=== PATIENT | female | born 1955 | race Caucasian/White ===

== ENCOUNTER 2017-10-04 12:12 | Emergency (ER) | payer OTHER | END 2017-10-04 18:16 | disposition home or self-care (01) | LOC: FTE 12:12 | DX: M75.122 Complete rotator cuff tear or rupture of left shoulder, not specified as traumatic (principal); M53.3 Sacrococcygeal disorders, not elsewhere classified; J44.9 Chronic obstructive pulmonary disease, unspecified; Z87.891 Personal history of nicotine dependence | CPT/HCPCS: 72220; 73030; 99284-25 ==

== ENCOUNTER 2018-02-09 11:18 | Emergency (ER) | payer OTHER ==
[2018-02-09 12:55] LABS: ADD MAN DIFF? NO
[2018-02-09 13:00] LABS: BASOPHILS % 0.3 % (0.0-2.0); EOSINOPHILS % 0.1 % (0.0-7.0); HEMATOCRIT 40.7 % (37.0-47.0); HEMOGLOBIN 12.8 g/dl (12.0-16.0); LYMPHOCYTES # 1.5 10^3/ul (0.8-2.9); LYMPHOCYTES % 14.2 % (15.0-51.0); MEAN CORPUSCULAR HEMOGLOBIN 25.7 pg (29.0-33.0); MEAN CORPUSCULAR HGB CONC 31.4 g/dl (32.0-37.0); MEAN CORPUSCULAR VOLUME 81.6 fl (82.0-101.0); MEAN PLATELET VOLUME 10.7 fl (7.4-10.4); MONOCYTE # 0.4 10^3/ul (0.3-0.9); MONOCYTES % 3.2 % (0.0-11.0); NEUTROPHIL # 8.8 10^3/ul (1.6-7.5); NEUTROPHILS % 81.6 % (39.0-77.0); PLATELET COUNT 294 10^3/UL (140-415); RED BLOOD COUNT 4.99 10^6/ul (4.20-5.40); RED CELL DISTRIBUTION WIDTH 17.1 % (11.5-14.5)
[2018-02-09 13:00] LABS: WHITE BLOOD COUNT 10.8 10^3/ul (4.8-10.8)
[2018-02-09 13:18] LABS: ALANINE AMINOTRANSFERASE 15 IU/L (13-69); ALBUMIN 4.4 g/dl (3.3-4.9); ALBUMIN/GLOBULIN RATIO 1.29; ALKALINE PHOSPHATASE 93 IU/L (42-121); ANION GAP 17 (8-16); ASPARTATE AMINO TRANSFERASE 17 IU/L (15-46); BILIRUBIN,INDIRECT 0.4 mg/dl (0-1.1); BILIRUBIN,TOTAL 0.4 mg/dl (0.2-1.3); BLOOD UREA NITROGEN 15 mg/dl (7-20); CALCIUM 9.6 mg/dl (8.4-10.2); CARBON DIOXIDE 23 mmol/L (21-31); CHLORIDE 107 mmol/L (97-110); CREATININE 0.63 mg/dl (0.44-1.00); GLUCOSE 111 mg/dl (70-220); LIPASE 47 U/L (23-300); SODIUM 143 mmol/L (135-144); TOTAL PROTEIN 7.8 g/dl (6.1-8.1)
[2018-02-09] MEDS: ONDANSETRON 4 MG INJ IV (13:24)
[2018-02-09] MEDS: SOD CHLORIDE 0.9% 1,000 ML IV (13:25)
[2018-02-09 13:57] LABS: ADD UMIC NO; UR ASCORBIC ACID NEGATIVE (NEGATIVE); UR BILIRUBIN (Dip) NEGATIVE (NEGATIVE); UR BLOOD (Dip) NEGATIVE (NEGATIVE); UR CLARITY CLEAR (CLEAR); UR COLOR YELLOW (YELLOW); UR GLUCOSE (Dip) NEGATIVE (NEGATIVE); UR KETONES (Dip) TRACE mg/dL (NEGATIVE); UR LEUKOCYTE ESTERASE (Dip) NEGATIVE Leu/ul (NEGATIVE); UR NITRITE (Dip) NEGATIVE (NEGATIVE); UR SPECIFIC GRAVITY (Dip) 1.012 (1.003-1.030); UR TOTAL PROTEIN (Dip) NEGATIVE (NEGATIVE); UR UROBILINOGEN (Dip) NEGATIVE (NEGATIVE)
[2018-02-09] MEDS: FAMOTIDINE 20 MG INJ IV (14:12)
[2018-02-09] MEDS: METOCLOPRAMIDE 10 MG INJ IV (14:12)
[2018-02-09] MEDS: LIDOCAINE/MYLANTA 40 ML BTL PO (14:12)
[2018-02-09] MEDS: DIPHENHYDRAMINE 50 MG INJ IV (14:12)
[2018-02-09] MEDS: morphine 4 MG/ML VIAL IV (14:13)
== END 2018-02-09 16:48 | disposition home or self-care (01) ==
LOC: E/R 11:18
DX: R11.2 Nausea with vomiting, unspecified (principal); R10.13 Epigastric pain
CPT/HCPCS: 36415; 80053; 81003; 83690; 85025; 96374; 96375; 99284-25

== ENCOUNTER 2018-04-24 06:27 | Inpatient (IN) | payer OTHER ==
[2018-04-24] MEDS ORDERED: BUPIVACAINE 0.5%/EPI (SDV) 30 ML INJ (06:45)
[2018-04-24] MEDS ORDERED: HYDROmorphONE 2 MG/ML SYG (06:46)
[2018-04-24] MEDS ORDERED: MIDAZOLAM 1 MG/ML 2 ML INJ (06:46)
[2018-04-24] MEDS ORDERED: ROPIVACAINE 0.5 % 30 ML VIAL (06:46)
[2018-04-24] MEDS ORDERED: HYDROCORTISONE 100 MG INJ (06:46)
[2018-04-24] MEDS ORDERED: THROMBIN 5000 UNIT VIAL (06:46)
[2018-04-24] MEDS ORDERED: CA CHLORIDE 10% 10 ML SYRINGE (06:46)
[2018-04-24] MEDS ORDERED: PROPOFOL 20 ML (06:46)
[2018-04-24] MEDS ORDERED: TOBRAMYCIN 1.2 GM POWDER (06:46)
[2018-04-24] MEDS ORDERED: CEFAZOLIN 1 GM INJ (06:46)
[2018-04-24] MEDS: DEXAMETHASONE 1 MG TAB PO (06:50)
[2018-04-24] MEDS: traMADol 50 MG TAB PO (06:50)
[2018-04-24] MEDS ORDERED: hydrALAzine 20 MG INJ (07:25)
[2018-04-24] MEDS ORDERED: DEXAMETHASONE 4 MG/ML 1 ML INJ (07:28)
[2018-04-24] MEDS ORDERED: ONDANSETRON 4 MG INJ (07:28)
[2018-04-24] MEDS ORDERED: ACETAMINOPHEN 1000MG/100ML IV 100 ML (07:28)
[2018-04-24] MEDS ORDERED: METOCLOPRAMIDE 10 MG INJ (07:28)
[2018-04-24] MEDS ORDERED: LABETALOL HCL 20MG INJ (07:33)
[2018-04-24] MEDS ORDERED: VANCOMYCIN 1 GM INJ (08:19)
[2018-04-24] MEDS ORDERED: FENTAnyl 50 MCG/ML VIAL IV ×3 (08:30)
[2018-04-24] MEDS: POLYMYXIN/BACITRACIN 1L IRRIG (08:30)
[2018-04-24] MEDS ORDERED: hydrALAzine 20 MG INJ IV (08:30)
[2018-04-24] MEDS ORDERED: ALBUTEROL 0.083% (NEB) 2.5 MG/3 ML AMP HHN (08:30)
[2018-04-24] MEDS ORDERED: MEPERIDINE 25 MG INJ IV (08:30)
[2018-04-24] MEDS ORDERED: LABETALOL HCL 20MG INJ IV (08:30)
[2018-04-24] MEDS: CEFAZOLIN 2 GM/50 ML (PMX) 50 ML IVPB (08:30)
[2018-04-24] MEDS ORDERED: EPHEDrine SULFATE 50 MG/5 ML SYG IV (08:30)
[2018-04-24] MEDS ORDERED: METOCLOPRAMIDE 10 MG INJ IV (08:30)
[2018-04-24] MEDS ORDERED: HYDROmorphONE 1 MG/5 ML IV SYRINGE IV (08:30)
[2018-04-24] MEDS ORDERED: OXYCODONE/ACETAMINOPHEN (5/325) TAB PO ×3 (08:30→09:00)
[2018-04-24] MEDS: BUPIVACAINE 0.5% (SDV) 30 ML, morphine SULFATE (PF) 8 MG, EPINEPHrine 0.3 MG, KETOROLAC... IRR (08:30)
[2018-04-24] MEDS: TRANEXAMIC ACID 1,000 MG in DEXTROSE 5% 100 ML IVPB (08:30)
[2018-04-24] MEDS ORDERED: DIPHENHYDRAMINE 50 MG INJ IV ×2 (08:30→09:00)
[2018-04-24] MEDS ORDERED: IPRATROPIUM (NEB) 0.5 MG/2.5 ML AMP HHN (08:30)
[2018-04-24] MEDS ORDERED: SUGAMMADEX SODIUM 200 MG/2 ML VIAL IV (08:32)
[2018-04-24] MEDS: TRANEXAMIC ACID 1,000 MG in DEXTROSE 5% 100 ML IV (09:00)
[2018-04-24] MEDS ORDERED: morphine 2 MG INJ IV ×2 (09:00)
[2018-04-24] MEDS ORDERED: ONDANSETRON 4 MG INJ IV (09:00)
[2018-04-24] MEDS ORDERED: ZOLPIDEM 5 MG TAB PO (09:00)
[2018-04-24] MEDS: HYDROmorphONE 1 MG/5 ML IV SYRINGE IV ×4 (09:16→14:05)
[2018-04-24] MEDS: ONDANSETRON 4 MG INJ IV ×3 (09:19→10:12)
[2018-04-24] MEDS ORDERED: LORAZEPAM 2 MG INJ IV (09:30)
[2018-04-24] MEDS: CEFAZOLIN 1 GM/50 ML (PMX) 50 ML IVPB ×2 (11:57→19:59)
[2018-04-24] MEDS: DEXAMETHASONE 2 MG TAB PO ×2 (12:00→17:10)
[2018-04-24] MEDS: ALBUTEROL HFA 8 GM INHALER INH ×2 (17:00→21:00)
[2018-04-24] MEDS: OXYCODONE/ACETAMINOPHEN (5/325) TAB PO ×2 (17:10→21:40)
[2018-04-24] MEDS: GABAPENTIN 300 MG CAP PO (21:40)
[2018-04-24] MEDS: SENNA/DOCUSATE NA (8.6MG/50MG) TAB PO (21:40)
[2018-04-25] MEDS: DEXAMETHASONE 2 MG TAB PO ×2 (00:24→06:30)
[2018-04-25] MEDS: TOLTERODINE (SR) 2 MG CAP PO ×3 (00:24→21:00)
[2018-04-25] MEDS: ALBUTEROL HFA 8 GM INHALER INH ×6 (01:23→21:01)
[2018-04-25] MEDS: OXYCODONE/ACETAMINOPHEN (5/325) TAB PO ×5 (03:12→22:20)
[2018-04-25] MEDS: CEFAZOLIN 1 GM/50 ML (PMX) 50 ML IVPB (04:00)
[2018-04-25] MEDS: PANTOPRAZOLE (EC) 40 MG TAB PO (06:30)
[2018-04-25] MEDS ORDERED: TOLTERODINE (SR) 2 MG CAP PO (09:00)
[2018-04-25] MEDS ORDERED: TOLTERODINE (SR) 4 MG CAP PO (09:00)
[2018-04-25] MEDS: ASPIRIN 81 MG TAB PO (09:06)
[2018-04-25] MEDS: SENNA/DOCUSATE NA (8.6MG/50MG) TAB PO ×2 (09:06→21:00)
[2018-04-25] MEDS: predniSONE 10 MG TAB PO (09:06)
[2018-04-25] MEDS: KETOROLAC 15 MG INJ IV ×2 (09:34→23:24)
[2018-04-25] MEDS: morphine LIQ (10 MG/5 ML) CUP PO ×3 (10:00→21:00)
[2018-04-25] MEDS: GABAPENTIN 300 MG CAP PO (21:00)
[2018-04-26] MEDS: morphine LIQ (10 MG/5 ML) CUP PO ×6 (00:55→21:14)
[2018-04-26] MEDS: ALBUTEROL HFA 8 GM INHALER INH ×6 (00:58→21:14)
[2018-04-26] MEDS: OXYCODONE/ACETAMINOPHEN (5/325) TAB PO ×6 (02:56→23:07)
[2018-04-26] MEDS: PANTOPRAZOLE (EC) 40 MG TAB PO (06:40)
[2018-04-26] MEDS: TOLTERODINE (SR) 2 MG CAP PO ×2 (08:57→21:14)
[2018-04-26] MEDS: SENNA/DOCUSATE NA (8.6MG/50MG) TAB PO ×2 (08:57→21:14)
[2018-04-26] MEDS: ASPIRIN 81 MG TAB PO (08:58)
[2018-04-26] MEDS: MAGNESIUM HYDROXIDE 30ML CUP PO (08:58)
[2018-04-26] MEDS: predniSONE 10 MG TAB PO (10:42)
[2018-04-26] MEDS: GABAPENTIN 300 MG CAP PO (21:14)
[2018-04-27] MEDS: morphine LIQ (10 MG/5 ML) CUP PO ×6 (01:13→21:52)
[2018-04-27] MEDS: ALBUTEROL HFA 8 GM INHALER INH ×6 (01:15→20:03)
[2018-04-27] MEDS: OXYCODONE/ACETAMINOPHEN (5/325) TAB PO ×5 (03:11→20:04)
[2018-04-27] MEDS: PANTOPRAZOLE (EC) 40 MG TAB PO (07:31)
[2018-04-27] MEDS: TOLTERODINE (SR) 2 MG CAP PO ×2 (09:07→20:03)
[2018-04-27] MEDS: ACETAMINOPHEN 500 MG TAB PO (09:07)
[2018-04-27] MEDS: SENNA/DOCUSATE NA (8.6MG/50MG) TAB PO ×2 (09:07→20:03)
[2018-04-27] MEDS: ASPIRIN 81 MG TAB PO (09:07)
[2018-04-27] MEDS: predniSONE 10 MG TAB PO (09:07)
[2018-04-27] MEDS: MAGNESIUM HYDROXIDE 30ML CUP PO (17:42)
[2018-04-27] MEDS: GABAPENTIN 300 MG CAP PO (20:03)
[2018-04-28] MEDS: OXYCODONE/ACETAMINOPHEN (5/325) TAB PO ×6 (00:09→20:17)
[2018-04-28] MEDS: morphine LIQ (10 MG/5 ML) CUP PO ×6 (01:55→22:16)
[2018-04-28] MEDS: ALBUTEROL HFA 8 GM INHALER INH ×6 (01:55→20:25)
[2018-04-28] MEDS: SENNA/DOCUSATE NA (8.6MG/50MG) TAB PO ×2 (08:23→20:25)
[2018-04-28] MEDS: ASPIRIN 81 MG TAB PO (08:24)
[2018-04-28] MEDS: TOLTERODINE (SR) 2 MG CAP PO ×2 (08:24→20:25)
[2018-04-28] MEDS: predniSONE 10 MG TAB PO (08:24)
[2018-04-28] MEDS: PANTOPRAZOLE (EC) 40 MG TAB PO (08:25)
[2018-04-28] MEDS ORDERED: VITAMIN A & D 5 GM OINT PACKET TOP (11:22)
[2018-04-28] MEDS: GABAPENTIN 300 MG CAP PO (20:25)
[2018-04-29] MEDS: ALBUTEROL HFA 8 GM INHALER INH ×4 (00:17→12:42)
[2018-04-29] MEDS: OXYCODONE/ACETAMINOPHEN (5/325) TAB PO ×4 (00:18→12:42)
[2018-04-29] MEDS: morphine LIQ (10 MG/5 ML) CUP PO ×4 (02:15→14:25)
[2018-04-29] MEDS: SENNA/DOCUSATE NA (8.6MG/50MG) TAB PO (09:17)
[2018-04-29] MEDS: predniSONE 10 MG TAB PO (09:17)
[2018-04-29] MEDS: PANTOPRAZOLE (EC) 40 MG TAB PO (09:17)
[2018-04-29] MEDS: TOLTERODINE (SR) 2 MG CAP PO (09:17)
[2018-04-29] MEDS: ASPIRIN 81 MG TAB PO (09:18)
== END 2018-04-29 14:44 | DRG 483 ==
LOC: REC 06:27 → MS1 14:16
PROC: 0RRK00Z Replacement of Left Shoulder Joint with Reverse Ball and Socket Synthetic Substitute, Open Approach (ICD-10-PCS; principal; 2018-04-24 07:00)
PROC: 0PBB0ZZ Excision of Left Clavicle, Open Approach (ICD-10-PCS; 2018-04-24 07:00)
DX: M19.012 Primary osteoarthritis, left shoulder (principal); M05.40 Rheumatoid myopathy with rheumatoid arthritis of unspecified site; M12.812 Other specific arthropathies, not elsewhere classified, left shoulder; G89.29 Other chronic pain; M75.102 Unspecified rotator cuff tear or rupture of left shoulder, not specified as traumatic
CPT/HCPCS: 73030; 86999; 88304; 88311; 97110; 97116; 97162; 97165; 97530

== ENCOUNTER 2018-04-29 15:00 | Inpatient (IN) | payer OTHER ==
[2018-04-29] MEDS ORDERED: LACTULOSE 30ML CUP PO (17:00)
[2018-04-29] MEDS ORDERED: ACETAMINOPHEN 500 MG TAB PO (17:30)
[2018-04-29] MEDS ORDERED: PENDING SANTYL ORDER FOR WOUND CARE XX (17:30)
[2018-04-29] MEDS ORDERED: OXYCODONE/ACETAMINOPHEN (5/325) TAB PO (17:30)
[2018-04-29] MEDS ORDERED: ONDANSETRON 4 MG INJ IV (17:30)
[2018-04-29] MEDS ORDERED: MAGNESIUM HYDROXIDE 30ML CUP PO (17:30)
[2018-04-29] MEDS ORDERED: ZOLPIDEM 5 MG TAB PO (17:30)
[2018-04-29] MEDS ORDERED: DIPHENHYDRAMINE 50 MG INJ IV (17:30)
[2018-04-29] MEDS: morphine LIQ (10 MG/5 ML) CUP PO (17:49)
[2018-04-29] MEDS: GABAPENTIN 300 MG CAP PO (20:49)
[2018-04-29] MEDS: SENNA/DOCUSATE NA (8.6MG/50MG) TAB PO (20:49)
[2018-04-29] MEDS: DOCUSATE SODIUM 100 MG CAP PO (20:49)
[2018-04-29] MEDS: OXYCODONE/ACETAMINOPHEN (5/325) TAB PO (20:55)
[2018-04-29] MEDS: TOLTERODINE (SR) 2 MG CAP PO (21:18)
[2018-04-29] MEDS: ALBUTEROL HFA 8 GM INHALER INH (21:20)
[2018-04-30 00:49] LABS: ADD UMIC YES; UR ASCORBIC ACID NEGATIVE (NEGATIVE); UR BACTERIA FEW /HPF (NONE SEEN); UR BILIRUBIN (Dip) NEGATIVE (NEGATIVE); UR BLOOD (Dip) NEGATIVE (NEGATIVE); UR CLARITY CLEAR (CLEAR); UR COLOR YELLOW (YELLOW); UR GLUCOSE (Dip) NEGATIVE (NEGATIVE); UR KETONES (Dip) NEGATIVE (NEGATIVE); UR LEUKOCYTE ESTERASE (Dip) TRACE Leu/ul (NEGATIVE); UR MUCUS FEW /HPF (NONE SEEN); UR NITRITE (Dip) NEGATIVE (NEGATIVE); UR RBC 2 /HPF (0-5); UR SPECIFIC GRAVITY (Dip) 1.024 (1.003-1.030); UR SQUAMOUS EPITHELIAL CELL FEW /HPF (FEW); UR TOTAL PROTEIN (Dip) NEGATIVE (NEGATIVE); UR UROBILINOGEN (Dip) NEGATIVE (NEGATIVE); UR WBC 2 /HPF (0-5)
[2018-04-30] MEDS: morphine LIQ (10 MG/5 ML) CUP PO ×6 (01:01→22:41)
[2018-04-30] MEDS: ALBUTEROL HFA 8 GM INHALER INH ×6 (01:02→21:05)
[2018-04-30] MEDS: OXYCODONE/ACETAMINOPHEN (5/325) TAB PO ×2 (03:03→07:03)
[2018-04-30 07:02] LABS: ADD MAN DIFF? NO
[2018-04-30 07:06] LABS: BASOPHILS % 0.4 % (0.0-2.0); EOSINOPHILS # 0.2 10^3/ul (0.0-0.5); EOSINOPHILS % 1.8 % (0.0-7.0); HEMATOCRIT 37.2 % (37.0-47.0); HEMOGLOBIN 11.6 g/dl (12.0-16.0); LYMPHOCYTES # 3.2 10^3/ul (0.8-2.9); LYMPHOCYTES % 34.1 % (15.0-51.0); MEAN CORPUSCULAR HEMOGLOBIN 26.5 pg (29.0-33.0); MEAN CORPUSCULAR HGB CONC 31.2 g/dl (32.0-37.0); MEAN CORPUSCULAR VOLUME 85.1 fl (82.0-101.0); MEAN PLATELET VOLUME 11.3 fl (7.4-10.4); MONOCYTE # 0.4 10^3/ul (0.3-0.9); MONOCYTES % 4.6 % (0.0-11.0); NEUTROPHIL # 5.5 10^3/ul (1.6-7.5); NEUTROPHILS % 58.6 % (39.0-77.0); PLATELET COUNT 261 10^3/UL (140-415); RED BLOOD COUNT 4.37 10^6/ul (4.20-5.40); RED CELL DISTRIBUTION WIDTH 16.5 % (11.5-14.5)
[2018-04-30 07:06] LABS: WHITE BLOOD COUNT 9.4 10^3/ul (4.8-10.8)
[2018-04-30] MEDS: PANTOPRAZOLE (EC) 40 MG TAB PO (07:20)
[2018-04-30 07:23] LABS: ALANINE AMINOTRANSFERASE 22 IU/L (13-69); ALBUMIN 3.5 g/dl (3.3-4.9); ALBUMIN/GLOBULIN RATIO 1.34; ALKALINE PHOSPHATASE 62 IU/L (42-121); ANION GAP 9 (8-16); ASPARTATE AMINO TRANSFERASE 17 IU/L (15-46); BILIRUBIN,INDIRECT 0.6 mg/dl (0-1.1); BILIRUBIN,TOTAL 0.6 mg/dl (0.2-1.3); BLOOD UREA NITROGEN 17 mg/dl (7-20); CALCIUM 8.6 mg/dl (8.4-10.2); CARBON DIOXIDE 28 mmol/L (21-31); CHLORIDE 109 mmol/L (97-110); CREATININE 0.63 mg/dl (0.44-1.00); GLUCOSE 91 mg/dl (70-220); POTASSIUM 3.6 mmol/L (3.5-5.1); SODIUM 142 mmol/L (135-144); TOTAL PROTEIN 6.1 g/dl (6.1-8.1)
[2018-04-30] MEDS ORDERED: morphine LIQ (10 MG/5 ML) CUP PO (08:30)
[2018-04-30] MEDS ORDERED: NALOXONE (0.4 MG/ML) INJ IV (08:30)
[2018-04-30] MEDS: TOLTERODINE (SR) 2 MG CAP PO ×2 (08:47→20:57)
[2018-04-30] MEDS: DOCUSATE SODIUM 100 MG CAP PO ×2 (08:47→20:57)
[2018-04-30] MEDS: POTASSIUM CHLORIDE (SR) 20 MEQ TAB PO (08:47)
[2018-04-30] MEDS: FOLIC ACID 1 MG TAB PO (08:47)
[2018-04-30] MEDS: SENNA/DOCUSATE NA (8.6MG/50MG) TAB PO ×2 (08:48→20:58)
[2018-04-30] MEDS: ASPIRIN 81 MG TAB PO (08:48)
[2018-04-30] MEDS: oxyCODONE (CR) 20 MG TAB [oxyCONTIN] PO ×2 (08:48→20:58)
[2018-04-30] MEDS: predniSONE 10 MG TAB PO (08:48)
[2018-04-30] MEDS ORDERED: DOXYCYCLINE 100 MG TAB PO (09:00)
[2018-04-30] MEDS: GABAPENTIN 300 MG CAP PO (20:57)
[2018-04-30] MEDS: NYSTATIN 15 GM CR TOP (21:19)
[2018-05-01] MEDS: ALBUTEROL HFA 8 GM INHALER INH ×6 (01:00→21:00)
[2018-05-01] MEDS: morphine LIQ (10 MG/5 ML) CUP PO ×3 (02:42→17:02)
[2018-05-01] MEDS: PANTOPRAZOLE (EC) 40 MG TAB PO (06:10)
[2018-05-01] MEDS: BISACODYL 10 MG SUPP PR (06:10)
[2018-05-01] MEDS: NYSTATIN 15 GM CR TOP ×2 (09:47→20:59)
[2018-05-01] MEDS: ASPIRIN 81 MG TAB PO (09:48)
[2018-05-01] MEDS: FOLIC ACID 1 MG TAB PO (09:48)
[2018-05-01] MEDS: DOCUSATE SODIUM 100 MG CAP PO ×2 (09:48→21:00)
[2018-05-01] MEDS: oxyCODONE (CR) 20 MG TAB [oxyCONTIN] PO ×2 (09:48→21:00)
[2018-05-01] MEDS: TOLTERODINE (SR) 2 MG CAP PO ×2 (09:48→21:00)
[2018-05-01] MEDS: SENNA/DOCUSATE NA (8.6MG/50MG) TAB PO ×2 (09:48→21:00)
[2018-05-01] MEDS: predniSONE 10 MG TAB PO (09:48)
[2018-05-01] MEDS: KETOROLAC 60 MG INJ IM (13:51)
[2018-05-01] MEDS: CELECOXIB 100 MG CAP PO (21:00)
[2018-05-01] MEDS: GABAPENTIN 300 MG CAP PO (21:00)
[2018-05-02] MEDS: morphine LIQ (10 MG/5 ML) CUP PO ×4 (01:26→17:08)
[2018-05-02] MEDS: ALBUTEROL HFA 8 GM INHALER INH ×6 (01:27→21:34)
[2018-05-02] MEDS: PANTOPRAZOLE (EC) 40 MG TAB PO (06:11)
[2018-05-02] MEDS: TOLTERODINE (SR) 2 MG CAP PO ×2 (08:55→21:38)
[2018-05-02] MEDS: oxyCODONE (CR) 20 MG TAB [oxyCONTIN] PO ×2 (08:55→21:35)
[2018-05-02] MEDS: NYSTATIN 15 GM CR TOP ×2 (08:55→21:35)
[2018-05-02] MEDS: FOLIC ACID 1 MG TAB PO (08:56)
[2018-05-02] MEDS: ASPIRIN 81 MG TAB PO (08:56)
[2018-05-02] MEDS: DOCUSATE SODIUM 100 MG CAP PO ×2 (08:56→21:34)
[2018-05-02] MEDS: CELECOXIB 100 MG CAP PO ×2 (08:56→21:34)
[2018-05-02] MEDS: predniSONE 10 MG TAB PO (08:56)
[2018-05-02] MEDS: SENNA/DOCUSATE NA (8.6MG/50MG) TAB PO ×2 (08:56→21:00)
[2018-05-02] MEDS: GABAPENTIN 300 MG CAP PO (21:34)
[2018-05-03] MEDS: ALBUTEROL HFA 8 GM INHALER INH ×6 (01:00→21:00)
[2018-05-03] MEDS: morphine LIQ (10 MG/5 ML) CUP PO ×5 (02:15→19:33)
[2018-05-03] MEDS: PANTOPRAZOLE (EC) 40 MG TAB PO (06:19)
[2018-05-03] MEDS: oxyCODONE (CR) 20 MG TAB [oxyCONTIN] PO ×2 (09:44→21:05)
[2018-05-03] MEDS: SENNA/DOCUSATE NA (8.6MG/50MG) TAB PO ×2 (10:52→21:05)
[2018-05-03] MEDS: FOLIC ACID 1 MG TAB PO (10:52)
[2018-05-03] MEDS: ASPIRIN 81 MG TAB PO (10:52)
[2018-05-03] MEDS: DOCUSATE SODIUM 100 MG CAP PO ×2 (10:52→21:04)
[2018-05-03] MEDS: TOLTERODINE (SR) 2 MG CAP PO ×2 (10:52→21:35)
[2018-05-03] MEDS: predniSONE 10 MG TAB PO (10:52)
[2018-05-03] MEDS: NYSTATIN 15 GM CR TOP ×2 (10:54→21:05)
[2018-05-03] MEDS: CELECOXIB 100 MG CAP PO ×2 (11:21→21:04)
[2018-05-03] MEDS: GABAPENTIN 300 MG CAP PO (21:05)
[2018-05-04] MEDS: morphine LIQ (10 MG/5 ML) CUP PO ×5 (00:28→22:34)
[2018-05-04] MEDS: ALBUTEROL HFA 8 GM INHALER INH ×6 (01:00→20:46)
[2018-05-04] MEDS: PANTOPRAZOLE (EC) 40 MG TAB PO (07:20)
[2018-05-04] MEDS: TOLTERODINE (SR) 2 MG CAP PO ×2 (08:31→20:43)
[2018-05-04] MEDS: ASPIRIN 81 MG TAB PO (08:31)
[2018-05-04] MEDS: FOLIC ACID 1 MG TAB PO (08:31)
[2018-05-04] MEDS: predniSONE 10 MG TAB PO (08:31)
[2018-05-04] MEDS: DOCUSATE SODIUM 100 MG CAP PO ×2 (08:31→20:44)
[2018-05-04] MEDS: SENNA/DOCUSATE NA (8.6MG/50MG) TAB PO ×2 (08:31→20:43)
[2018-05-04] MEDS: oxyCODONE (CR) 20 MG TAB [oxyCONTIN] PO ×2 (08:32→20:43)
[2018-05-04] MEDS: CELECOXIB 100 MG CAP PO ×2 (08:32→20:44)
[2018-05-04] MEDS: NYSTATIN 15 GM CR TOP ×2 (08:32→20:46)
[2018-05-04] MEDS: GABAPENTIN 300 MG CAP PO (20:44)
[2018-05-05] MEDS: ALBUTEROL HFA 8 GM INHALER INH ×6 (01:00→21:37)
[2018-05-05] MEDS: morphine LIQ (10 MG/5 ML) CUP PO ×6 (02:26→23:21)
[2018-05-05] MEDS: PANTOPRAZOLE (EC) 40 MG TAB PO (06:19)
[2018-05-05] MEDS: predniSONE 10 MG TAB PO (08:44)
[2018-05-05] MEDS: ASPIRIN 81 MG TAB PO (08:44)
[2018-05-05] MEDS: TOLTERODINE (SR) 2 MG CAP PO ×2 (08:45→21:37)
[2018-05-05] MEDS: SENNA/DOCUSATE NA (8.6MG/50MG) TAB PO ×2 (08:45→21:37)
[2018-05-05] MEDS: CELECOXIB 100 MG CAP PO ×2 (08:45→21:36)
[2018-05-05] MEDS: oxyCODONE (CR) 20 MG TAB [oxyCONTIN] PO ×2 (08:45→21:36)
[2018-05-05] MEDS: FOLIC ACID 1 MG TAB PO (08:45)
[2018-05-05] MEDS: DOCUSATE SODIUM 100 MG CAP PO ×2 (09:53→21:37)
[2018-05-05] MEDS: NYSTATIN 15 GM CR TOP ×2 (09:53→21:37)
[2018-05-05] MEDS: GABAPENTIN 300 MG CAP PO (21:37)
[2018-05-06] MEDS: ALBUTEROL HFA 8 GM INHALER INH ×6 (01:00→21:18)
[2018-05-06] MEDS: morphine LIQ (10 MG/5 ML) CUP PO ×5 (03:34→23:26)
[2018-05-06] MEDS: ASPIRIN 81 MG TAB PO (09:15)
[2018-05-06] MEDS: PANTOPRAZOLE (EC) 40 MG TAB PO (09:15)
[2018-05-06] MEDS: DOCUSATE SODIUM 100 MG CAP PO ×2 (09:16→21:18)
[2018-05-06] MEDS: oxyCODONE (CR) 20 MG TAB [oxyCONTIN] PO ×2 (09:16→21:19)
[2018-05-06] MEDS: TOLTERODINE (SR) 2 MG CAP PO ×2 (09:16→21:19)
[2018-05-06] MEDS: predniSONE 10 MG TAB PO (09:16)
[2018-05-06] MEDS: CELECOXIB 100 MG CAP PO ×2 (09:16→21:18)
[2018-05-06] MEDS: SENNA/DOCUSATE NA (8.6MG/50MG) TAB PO ×2 (09:16→21:18)
[2018-05-06] MEDS: FOLIC ACID 1 MG TAB PO (10:39)
[2018-05-06] MEDS: NYSTATIN 15 GM CR TOP ×2 (10:40→21:20)
[2018-05-06] MEDS: GABAPENTIN 300 MG CAP PO (21:18)
[2018-05-07] MEDS: ALBUTEROL HFA 8 GM INHALER INH ×6 (01:00→21:19)
[2018-05-07] MEDS: morphine LIQ (10 MG/5 ML) CUP PO ×4 (03:37→18:57)
[2018-05-07] MEDS: PANTOPRAZOLE (EC) 40 MG TAB PO (06:39)
[2018-05-07 06:56] LABS: ADD MAN DIFF? NO
[2018-05-07 07:01] LABS: BASOPHILS % 0.5 % (0.0-2.0); EOSINOPHILS # 0.1 10^3/ul (0.0-0.5); EOSINOPHILS % 1.5 % (0.0-7.0); HEMATOCRIT 35.9 % (37.0-47.0); HEMOGLOBIN 10.9 g/dl (12.0-16.0); LYMPHOCYTES # 2.7 10^3/ul (0.8-2.9); LYMPHOCYTES % 30.8 % (15.0-51.0); MEAN CORPUSCULAR HEMOGLOBIN 25.7 pg (29.0-33.0); MEAN CORPUSCULAR HGB CONC 30.4 g/dl (32.0-37.0); MEAN CORPUSCULAR VOLUME 84.7 fl (82.0-101.0); MEAN PLATELET VOLUME 10.6 fl (7.4-10.4); MONOCYTE # 0.5 10^3/ul (0.3-0.9); MONOCYTES % 5.5 % (0.0-11.0); NEUTROPHIL # 5.3 10^3/ul (1.6-7.5); NEUTROPHILS % 61.2 % (39.0-77.0); PLATELET COUNT 282 10^3/UL (140-415); RED BLOOD COUNT 4.24 10^6/ul (4.20-5.40); RED CELL DISTRIBUTION WIDTH 16.8 % (11.5-14.5)
[2018-05-07 07:01] LABS: WHITE BLOOD COUNT 8.6 10^3/ul (4.8-10.8)
[2018-05-07 07:19] LABS: ANION GAP 10 (8-16); BLOOD UREA NITROGEN 14 mg/dl (7-20); CALCIUM 8.6 mg/dl (8.4-10.2); CARBON DIOXIDE 26 mmol/L (21-31); CHLORIDE 108 mmol/L (97-110); CREATININE 0.57 mg/dl (0.44-1.00); GLUCOSE 91 mg/dl (70-220); POTASSIUM 3.7 mmol/L (3.5-5.1); SODIUM 140 mmol/L (135-144)
[2018-05-07] MEDS: NYSTATIN 15 GM CR TOP ×2 (08:23→21:21)
[2018-05-07] MEDS: CELECOXIB 100 MG CAP PO ×2 (08:24→21:17)
[2018-05-07] MEDS: FOLIC ACID 1 MG TAB PO (08:24)
[2018-05-07] MEDS: SENNA/DOCUSATE NA (8.6MG/50MG) TAB PO ×2 (08:24→21:00)
[2018-05-07] MEDS: TOLTERODINE (SR) 2 MG CAP PO ×2 (08:24→21:16)
[2018-05-07] MEDS: predniSONE 10 MG TAB PO (08:25)
[2018-05-07] MEDS: ASPIRIN 81 MG TAB PO (08:25)
[2018-05-07] MEDS: DOCUSATE SODIUM 100 MG CAP PO ×2 (08:25→21:21)
[2018-05-07] MEDS: oxyCODONE (CR) 20 MG TAB [oxyCONTIN] PO ×2 (08:25→21:16)
[2018-05-07] MEDS: GABAPENTIN 300 MG CAP PO (21:16)
[2018-05-08] MEDS: morphine LIQ (10 MG/5 ML) CUP PO ×5 (00:10→23:04)
[2018-05-08] MEDS: ALBUTEROL HFA 8 GM INHALER INH ×6 (01:00→20:55)
[2018-05-08] MEDS: PANTOPRAZOLE (EC) 40 MG TAB PO (06:33)
[2018-05-08] MEDS: ASPIRIN 81 MG TAB PO (08:52)
[2018-05-08] MEDS: CELECOXIB 100 MG CAP PO ×2 (08:52→20:53)
[2018-05-08] MEDS: oxyCODONE (CR) 20 MG TAB [oxyCONTIN] PO ×2 (08:53→20:53)
[2018-05-08] MEDS: TOLTERODINE (SR) 2 MG CAP PO ×2 (08:53→20:53)
[2018-05-08] MEDS: DOCUSATE SODIUM 100 MG CAP PO ×2 (08:53→20:58)
[2018-05-08] MEDS: SENNA/DOCUSATE NA (8.6MG/50MG) TAB PO ×2 (08:54→20:58)
[2018-05-08] MEDS: FOLIC ACID 1 MG TAB PO (08:54)
[2018-05-08] MEDS: predniSONE 10 MG TAB PO (08:54)
[2018-05-08] MEDS: NYSTATIN 15 GM CR TOP ×2 (08:57→20:58)
[2018-05-08] MEDS: GABAPENTIN 300 MG CAP PO (20:52)
[2018-05-09] MEDS: ALBUTEROL HFA 8 GM INHALER INH ×6 (01:00→21:05)
[2018-05-09] MEDS: morphine LIQ (10 MG/5 ML) CUP PO ×3 (04:45→17:08)
[2018-05-09] MEDS: PANTOPRAZOLE (EC) 40 MG TAB PO (06:30)
[2018-05-09] MEDS: ASPIRIN 81 MG TAB PO (08:50)
[2018-05-09] MEDS: NYSTATIN 15 GM CR TOP ×2 (08:50→21:04)
[2018-05-09] MEDS: TOLTERODINE (SR) 2 MG CAP PO ×2 (08:50→21:05)
[2018-05-09] MEDS: oxyCODONE (CR) 20 MG TAB [oxyCONTIN] PO ×2 (08:50→21:04)
[2018-05-09] MEDS: FOLIC ACID 1 MG TAB PO (08:51)
[2018-05-09] MEDS: predniSONE 10 MG TAB PO (08:51)
[2018-05-09] MEDS: CELECOXIB 100 MG CAP PO ×2 (08:51→21:05)
[2018-05-09] MEDS: DOCUSATE SODIUM 100 MG CAP PO ×2 (08:51→21:05)
[2018-05-09] MEDS: SENNA/DOCUSATE NA (8.6MG/50MG) TAB PO ×2 (08:51→21:05)
[2018-05-09] MEDS: GABAPENTIN 300 MG CAP PO (21:05)
[2018-05-10] MEDS: ALBUTEROL HFA 8 GM INHALER INH ×6 (01:00→20:52)
[2018-05-10] MEDS: morphine LIQ (10 MG/5 ML) CUP PO ×3 (04:11→16:28)
[2018-05-10] MEDS: PANTOPRAZOLE (EC) 40 MG TAB PO (06:14)
[2018-05-10] MEDS: oxyCODONE (CR) 20 MG TAB [oxyCONTIN] PO ×2 (09:01→20:52)
[2018-05-10] MEDS: FOLIC ACID 1 MG TAB PO (09:03)
[2018-05-10] MEDS: TOLTERODINE (SR) 2 MG CAP PO ×2 (09:03→20:52)
[2018-05-10] MEDS: ASPIRIN 81 MG TAB PO (09:03)
[2018-05-10] MEDS: NYSTATIN 15 GM CR TOP ×2 (09:03→20:52)
[2018-05-10] MEDS: SENNA/DOCUSATE NA (8.6MG/50MG) TAB PO ×2 (09:03→20:52)
[2018-05-10] MEDS: predniSONE 10 MG TAB PO (09:03)
[2018-05-10] MEDS: CELECOXIB 100 MG CAP PO ×2 (09:03→20:52)
[2018-05-10] MEDS: DOCUSATE SODIUM 100 MG CAP PO ×2 (09:03→20:52)
[2018-05-10] MEDS: GABAPENTIN 300 MG CAP PO (20:52)
[2018-05-11] MEDS: morphine LIQ (10 MG/5 ML) CUP PO ×5 (00:51→23:21)
[2018-05-11] MEDS: ALBUTEROL HFA 8 GM INHALER INH ×6 (01:00→21:00)
[2018-05-11] MEDS: PANTOPRAZOLE (EC) 40 MG TAB PO (06:03)
[2018-05-11] MEDS: ASPIRIN 81 MG TAB PO (09:39)
[2018-05-11] MEDS: CELECOXIB 100 MG CAP PO ×2 (09:40→21:12)
[2018-05-11] MEDS: NYSTATIN 15 GM CR TOP ×2 (09:40→21:00)
[2018-05-11] MEDS: DOCUSATE SODIUM 100 MG CAP PO ×2 (09:40→21:12)
[2018-05-11] MEDS: TOLTERODINE (SR) 2 MG CAP PO ×2 (09:40→21:16)
[2018-05-11] MEDS: SENNA/DOCUSATE NA (8.6MG/50MG) TAB PO ×2 (09:40→21:16)
[2018-05-11] MEDS: FOLIC ACID 1 MG TAB PO (09:40)
[2018-05-11] MEDS: predniSONE 10 MG TAB PO (09:40)
[2018-05-11] MEDS: oxyCODONE (CR) 20 MG TAB [oxyCONTIN] PO ×2 (09:41→21:16)
[2018-05-11] MEDS: GABAPENTIN 300 MG CAP PO (21:12)
[2018-05-12] MEDS: ALBUTEROL HFA 8 GM INHALER INH ×6 (01:00→21:00)
[2018-05-12] MEDS: morphine LIQ (10 MG/5 ML) CUP PO ×4 (04:28→23:00)
[2018-05-12] MEDS: PANTOPRAZOLE (EC) 40 MG TAB PO (06:37)
[2018-05-12] MEDS: SENNA/DOCUSATE NA (8.6MG/50MG) TAB PO ×2 (08:55→20:51)
[2018-05-12] MEDS: CELECOXIB 100 MG CAP PO ×2 (08:55→20:50)
[2018-05-12] MEDS: predniSONE 10 MG TAB PO (08:55)
[2018-05-12] MEDS: TOLTERODINE (SR) 2 MG CAP PO ×2 (08:55→20:49)
[2018-05-12] MEDS: oxyCODONE (CR) 20 MG TAB [oxyCONTIN] PO ×2 (08:55→20:51)
[2018-05-12] MEDS: FOLIC ACID 1 MG TAB PO (08:55)
[2018-05-12] MEDS: DOCUSATE SODIUM 100 MG CAP PO ×2 (08:55→20:51)
[2018-05-12] MEDS: ASPIRIN 81 MG TAB PO (08:55)
[2018-05-12] MEDS: NYSTATIN 15 GM CR TOP ×2 (08:58→20:52)
[2018-05-12] MEDS: GABAPENTIN 300 MG CAP PO (20:51)
[2018-05-13] MEDS: morphine LIQ (10 MG/5 ML) CUP PO ×5 (03:06→23:01)
[2018-05-13] MEDS: PANTOPRAZOLE (EC) 40 MG TAB PO (06:15)
[2018-05-13] MEDS: DOCUSATE SODIUM 100 MG CAP PO ×2 (08:27→20:50)
[2018-05-13] MEDS: CELECOXIB 100 MG CAP PO ×2 (08:27→20:50)
[2018-05-13] MEDS: oxyCODONE (CR) 20 MG TAB [oxyCONTIN] PO ×2 (08:27→20:51)
[2018-05-13] MEDS: ASPIRIN 81 MG TAB PO (08:28)
[2018-05-13] MEDS: predniSONE 10 MG TAB PO (09:00)
[2018-05-13] MEDS: FOLIC ACID 1 MG TAB PO (09:00)
[2018-05-13] MEDS: SENNA/DOCUSATE NA (8.6MG/50MG) TAB PO ×2 (09:00→20:50)
[2018-05-13] MEDS: TOLTERODINE (SR) 2 MG CAP PO ×2 (09:00→20:50)
[2018-05-13] MEDS: NYSTATIN 15 GM CR TOP ×2 (09:00→20:53)
[2018-05-13] MEDS: GABAPENTIN 300 MG CAP PO (20:50)
[2018-05-13] MEDS: ALBUTEROL HFA 8 GM INHALER INH (21:00)
[2018-05-14] MEDS: ALBUTEROL HFA 8 GM INHALER INH ×7 (01:00→21:11)
[2018-05-14] MEDS: morphine LIQ (10 MG/5 ML) CUP PO ×5 (03:02→23:37)
[2018-05-14] MEDS: PANTOPRAZOLE (EC) 40 MG TAB PO (06:47)
[2018-05-14] MEDS: DOCUSATE SODIUM 100 MG CAP PO ×2 (08:29→21:00)
[2018-05-14] MEDS: predniSONE 10 MG TAB PO (08:30)
[2018-05-14] MEDS: FOLIC ACID 1 MG TAB PO (08:30)
[2018-05-14] MEDS: SENNA/DOCUSATE NA (8.6MG/50MG) TAB PO ×2 (08:30→21:00)
[2018-05-14] MEDS: oxyCODONE (CR) 20 MG TAB [oxyCONTIN] PO ×2 (08:30→21:09)
[2018-05-14] MEDS: TOLTERODINE (SR) 2 MG CAP PO ×2 (08:30→21:08)
[2018-05-14] MEDS: CELECOXIB 100 MG CAP PO ×2 (08:30→21:08)
[2018-05-14] MEDS: ASPIRIN 81 MG TAB PO (08:30)
[2018-05-14] MEDS: NYSTATIN 15 GM CR TOP ×2 (09:00→21:13)
[2018-05-14] MEDS: BISACODYL 10 MG SUPP PR (11:45)
[2018-05-14 11:54] LABS: ADD MAN DIFF? NO
[2018-05-14 11:59] LABS: BASOPHILS % 0.2 % (0.0-2.0); EOSINOPHILS % 0.2 % (0.0-7.0); HEMATOCRIT 36.2 % (37.0-47.0); HEMOGLOBIN 11.3 g/dl (12.0-16.0); LYMPHOCYTES # 0.7 10^3/ul (0.8-2.9); LYMPHOCYTES % 6.3 % (15.0-51.0); MEAN CORPUSCULAR HEMOGLOBIN 25.7 pg (29.0-33.0); MEAN CORPUSCULAR HGB CONC 31.2 g/dl (32.0-37.0); MEAN CORPUSCULAR VOLUME 82.3 fl (82.0-101.0); MEAN PLATELET VOLUME 10.7 fl (7.4-10.4); MONOCYTE # 0.4 10^3/ul (0.3-0.9); NEUTROPHIL # 10.6 10^3/ul (1.6-7.5); NEUTROPHILS % 89.8 % (39.0-77.0); PLATELET COUNT 315 10^3/UL (140-415); RED CELL DISTRIBUTION WIDTH 15.5 % (11.5-14.5)
[2018-05-14 11:59] LABS: WHITE BLOOD COUNT 11.8 10^3/ul (4.8-10.8)
[2018-05-14 12:19] LABS: ANION GAP 13 (8-16); BLOOD UREA NITROGEN 14 mg/dl (7-20); CALCIUM 8.8 mg/dl (8.4-10.2); CARBON DIOXIDE 26 mmol/L (21-31); CHLORIDE 103 mmol/L (97-110); CREATININE 0.63 mg/dl (0.44-1.00); GLUCOSE 120 mg/dl (70-220); POTASSIUM 3.8 mmol/L (3.5-5.1); SODIUM 138 mmol/L (135-144)
[2018-05-14] MEDS: GABAPENTIN 300 MG CAP PO (21:08)
[2018-05-15] MEDS: ALBUTEROL HFA 8 GM INHALER INH ×4 (01:00→13:09)
[2018-05-15] MEDS: morphine LIQ (10 MG/5 ML) CUP PO ×3 (03:23→15:49)
[2018-05-15] MEDS: PANTOPRAZOLE (EC) 40 MG TAB PO (07:02)
[2018-05-15] MEDS: SENNA/DOCUSATE NA (8.6MG/50MG) TAB PO (09:00)
[2018-05-15] MEDS: DOCUSATE SODIUM 100 MG CAP PO (09:00)
[2018-05-15] MEDS: ASPIRIN 81 MG TAB PO (09:16)
[2018-05-15] MEDS: FOLIC ACID 1 MG TAB PO (09:16)
[2018-05-15] MEDS: TOLTERODINE (SR) 2 MG CAP PO (09:16)
[2018-05-15] MEDS: predniSONE 10 MG TAB PO (09:16)
[2018-05-15] MEDS: CELECOXIB 100 MG CAP PO (09:17)
[2018-05-15] MEDS: oxyCODONE (CR) 20 MG TAB [oxyCONTIN] PO (09:17)
[2018-05-15] MEDS: NYSTATIN 15 GM CR TOP (09:18)
== END 2018-05-15 16:00 | disposition home health service (06) | DRG 547 ==
LOC: VRC 05-13 19:38
PROC: F07Z9FZ Gait Training/Functional Ambulation Treatment using Assistive, Adaptive, Supportive or Protective Equipment (ICD-10-PCS; principal; 2018-04-29)
PROC: F07Z8FZ Transfer Training Treatment using Assistive, Adaptive, Supportive or Protective Equipment (ICD-10-PCS; 2018-04-29)
PROC: F07Z5FZ Bed Mobility Treatment using Assistive, Adaptive, Supportive or Protective Equipment (ICD-10-PCS; 2018-04-29)
PROC: F08Z2FZ Grooming/Personal Hygiene Treatment using Assistive, Adaptive, Supportive or Protective Equipment (ICD-10-PCS; 2018-04-29)
PROC: F08Z0FZ Bathing/Showering Techniques Treatment using Assistive, Adaptive, Supportive or Protective Equipment (ICD-10-PCS; 2018-04-29)
PROC: F08Z1FZ Dressing Techniques Treatment using Assistive, Adaptive, Supportive or Protective Equipment (ICD-10-PCS; 2018-04-29)
DX: M06.9 Rheumatoid arthritis, unspecified (principal); J44.9 Chronic obstructive pulmonary disease, unspecified; G89.29 Other chronic pain; Z79.899 Other long term (current) drug therapy; K21.9 Gastro-esophageal reflux disease without esophagitis; F41.9 Anxiety disorder, unspecified; Z96.612 Presence of left artificial shoulder joint; Z96.651 Presence of right artificial knee joint
CPT/HCPCS: 80048; 80053; 81001; 85025; 87081; 87086; 97110; 97112; 97116; 97150; 97163; 97530; 97535; 97542

== ENCOUNTER 2018-11-29 02:55 | Inpatient (IN) | payer OTHER ==
[2018-11-29 04:00] LABS: ADD MAN DIFF? NO
[2018-11-29] MEDS: ONDANSETRON 4 MG INJ IV ×3 (04:00→07:43)
[2018-11-29] MEDS: SOD CHLORIDE 0.9% 1,000 ML IV ×4 (04:00→18:33)
[2018-11-29 04:01] LABS: BASOPHIL # 0.1 10^3/ul (0.0-0.1); BASOPHILS % 0.3 % (0.0-2.0); EOSINOPHILS % 0.2 % (0.0-7.0); HEMATOCRIT 43.5 % (37.0-47.0); HEMOGLOBIN 14.1 g/dl (12.0-16.0); LYMPHOCYTES # 2.2 10^3/ul (0.8-2.9); LYMPHOCYTES % 12.5 % (15.0-51.0); MEAN CORPUSCULAR HEMOGLOBIN 27.2 pg (29.0-33.0); MEAN CORPUSCULAR HGB CONC 32.4 g/dl (32.0-37.0); MONOCYTE # 0.6 10^3/ul (0.3-0.9); MONOCYTES % 3.2 % (0.0-11.0); NEUTROPHIL # 14.4 10^3/ul (1.6-7.5); NEUTROPHILS % 83.1 % (39.0-77.0); PLATELET COUNT 381 10^3/UL (140-415); RED BLOOD COUNT 5.18 10^6/ul (4.20-5.40); RED CELL DISTRIBUTION WIDTH 16.9 % (11.5-14.5)
[2018-11-29 04:01] LABS: WHITE BLOOD COUNT 17.4 10^3/ul (4.8-10.8)
[2018-11-29 04:22] LABS: ALANINE AMINOTRANSFERASE 11 IU/L (13-69); ALBUMIN 4.2 g/dl (3.3-4.9); ALBUMIN/GLOBULIN RATIO 1.31; ALKALINE PHOSPHATASE 101 IU/L (42-121); ANION GAP 16 (5-13); ASPARTATE AMINO TRANSFERASE 20 IU/L (15-46); BILIRUBIN,INDIRECT 0.8 mg/dl (0-1.1); BILIRUBIN,TOTAL 0.8 mg/dl (0.2-1.3); BLOOD UREA NITROGEN 19 mg/dl (7-20); CALCIUM 9.9 mg/dl (8.4-10.2); CARBON DIOXIDE 21 mmol/L (21-31); CHLORIDE 106 mmol/L (97-110); CREATININE 0.63 mg/dl (0.44-1.00); Estimated GFR > 60 mL/min (>60); GLUCOSE 159 mg/dl (70-220); INR 0.91; LIPASE 72 U/L (23-300); POTASSIUM 3.6 mmol/L (3.5-5.1); PROTIME 12.4 Sec (11.9-14.9); SODIUM 143 mmol/L (135-144); TOTAL PROTEIN 7.4 g/dl (6.1-8.1)
[2018-11-29 04:34] LABS: B-TYPE NATRIURETIC PEPTIDE 131 PG/ML (0-125); TROPONIN-I < 0.012 ng/ml (0.000-0.120)
[2018-11-29] MEDS: morphine 4 MG/ML VIAL IV (05:26)
[2018-11-29] MEDS ORDERED: ACETAMINOPHEN 325 MG TAB PO (05:30)
[2018-11-29] MEDS ORDERED: ONDANSETRON 4 MG INJ IV (05:30)
[2018-11-29] MEDS: ENOXAPARIN 30 MG/0.3 ML SYG SC (08:45)
[2018-11-29] MEDS: morphine 2 MG INJ IV (11:28)
[2018-11-29 14:04] LABS: ADD UMIC YES; UR ASCORBIC ACID NEGATIVE (NEGATIVE); UR BACTERIA FEW /HPF (NONE SEEN); UR BILIRUBIN (Dip) NEGATIVE (NEGATIVE); UR BLOOD (Dip) NEGATIVE (NEGATIVE); UR CLARITY SLIGHTLY CLOUDY (CLEAR); UR COLOR YELLOW (YELLOW); UR GLUCOSE (Dip) NEGATIVE (NEGATIVE); UR KETONES (Dip) 2+ mg/dL (NEGATIVE); UR LEUKOCYTE ESTERASE (Dip) TRACE Leu/ul (NEGATIVE); UR MUCUS FEW /HPF (NONE SEEN); UR NITRITE (Dip) NEGATIVE (NEGATIVE); UR RBC 3 /HPF (0-5); UR SPECIFIC GRAVITY (Dip) 1.018 (1.003-1.030); UR SQUAMOUS EPITHELIAL CELL FEW /HPF (FEW); UR TOTAL PROTEIN (Dip) NEGATIVE (NEGATIVE); UR UROBILINOGEN (Dip) NEGATIVE (NEGATIVE); UR WBC 11 /HPF (0-5)
[2018-11-29] MEDS: CEFTRIAXONE 1 GM/50 ML (PMX) 50 ML IVPB (14:05)
[2018-11-29] MEDS: HYDROCODONE/APAP (10/325) TAB PO ×3 (14:05→20:25)
[2018-11-29] MEDS: GABAPENTIN 100 MG CAP PO ×2 (14:05→20:25)
[2018-11-29] MEDS: ALBUTEROL HFA 8 GM INHALER INH ×2 (15:02→20:00)
[2018-11-30] MEDS: morphine 2 MG INJ IV ×2 (00:59→05:32)
[2018-11-30] MEDS: ALBUTEROL HFA 8 GM INHALER INH ×4 (01:06→21:10)
[2018-11-30] MEDS: SOD CHLORIDE 0.9% 1,000 ML IV ×2 (04:35→17:38)
[2018-11-30] MEDS: GABAPENTIN 100 MG CAP PO ×3 (08:51→21:10)
[2018-11-30] MEDS: HYDROCODONE/APAP (10/325) TAB PO ×4 (08:51→21:10)
[2018-11-30] MEDS: CELECOXIB 200 MG CAP PO (08:51)
[2018-11-30] MEDS: FOLIC ACID 1 MG TAB PO (08:51)
[2018-11-30] MEDS: ENOXAPARIN 30 MG/0.3 ML SYG SC (08:52)
[2018-11-30] MEDS: CEFTRIAXONE 1 GM/50 ML (PMX) 50 ML IVPB ×2 (13:51→23:39)
[2018-11-30] MEDS: ONDANSETRON 4 MG INJ IV ×2 (17:37→23:46)
[2018-12-01] MEDS: morphine 2 MG INJ IV ×2 (02:00→07:41)
[2018-12-01] MEDS: SOD CHLORIDE 0.9% 1,000 ML IV (02:03)
[2018-12-01] MEDS: ALBUTEROL HFA 8 GM INHALER INH ×4 (02:04→21:27)
[2018-12-01] MEDS ORDERED: PENDING SANTYL ORDER FOR WOUND CARE XX (03:00)
[2018-12-01 05:51] LABS: ADD MAN DIFF? NO
[2018-12-01 06:06] LABS: BASOPHILS % 0.4 % (0.0-2.0); EOSINOPHILS % 0.6 % (0.0-7.0); HEMATOCRIT 34.5 % (37.0-47.0); HEMOGLOBIN 11.1 g/dl (12.0-16.0); LYMPHOCYTES % 19.6 % (15.0-51.0); MEAN CORPUSCULAR HEMOGLOBIN 27.3 pg (29.0-33.0); MEAN CORPUSCULAR HGB CONC 32.2 g/dl (32.0-37.0); MEAN PLATELET VOLUME 10.6 fl (7.4-10.4); MONOCYTE # 0.3 10^3/ul (0.3-0.9); MONOCYTES % 6.6 % (0.0-11.0); NEUTROPHIL # 3.5 10^3/ul (1.6-7.5); NEUTROPHILS % 72.2 % (39.0-77.0); PLATELET COUNT 229 10^3/UL (140-415); RED BLOOD COUNT 4.06 10^6/ul (4.20-5.40); RED CELL DISTRIBUTION WIDTH 16.9 % (11.5-14.5)
[2018-12-01 06:06] LABS: WHITE BLOOD COUNT 4.9 10^3/ul (4.8-10.8)
[2018-12-01 07:02] LABS: ANION GAP 9 (5-13); BLOOD UREA NITROGEN 5 mg/dl (7-20); CALCIUM 8.4 mg/dl (8.4-10.2); CARBON DIOXIDE 24 mmol/L (21-31); CHLORIDE 107 mmol/L (97-110); CREATININE 0.45 mg/dl (0.44-1.00); Estimated GFR > 60 mL/min (>60); GLUCOSE 78 mg/dl (70-220); POTASSIUM 3.1 mmol/L (3.5-5.1); SODIUM 140 mmol/L (135-144)
[2018-12-01] MEDS: ONDANSETRON 4 MG INJ IV (07:46)
[2018-12-01] MEDS: ENOXAPARIN 30 MG/0.3 ML SYG SC (09:39)
[2018-12-01] MEDS: CELECOXIB 200 MG CAP PO (09:39)
[2018-12-01] MEDS: HYDROCODONE/APAP (10/325) TAB PO ×4 (09:39→21:30)
[2018-12-01] MEDS: GABAPENTIN 100 MG CAP PO ×3 (09:39→21:30)
[2018-12-01] MEDS: FOLIC ACID 1 MG TAB PO (09:39)
[2018-12-01] MEDS: POTASSIUM CHLORIDE (SR) 20 MEQ TAB PO (12:51)
[2018-12-01] MEDS: CEFTRIAXONE 1 GM/50 ML (PMX) 50 ML IVPB (12:51)
[2018-12-01] MEDS: NS + KCL 20 MEQ 1,000 ML IV (12:51)
[2018-12-01 17:57] LABS: ADD UMIC NO; UR ASCORBIC ACID NEGATIVE (NEGATIVE); UR BILIRUBIN (Dip) NEGATIVE (NEGATIVE); UR BLOOD (Dip) NEGATIVE (NEGATIVE); UR CLARITY CLEAR (CLEAR); UR COLOR YELLOW (YELLOW); UR GLUCOSE (Dip) NEGATIVE (NEGATIVE); UR KETONES (Dip) 2+ mg/dL (NEGATIVE); UR LEUKOCYTE ESTERASE (Dip) NEGATIVE Leu/ul (NEGATIVE); UR NITRITE (Dip) NEGATIVE (NEGATIVE); UR SPECIFIC GRAVITY (Dip) 1.014 (1.003-1.030); UR TOTAL PROTEIN (Dip) NEGATIVE (NEGATIVE); UR UROBILINOGEN (Dip) NEGATIVE (NEGATIVE)
[2018-12-01] MEDS ORDERED: VITAMIN A & D 5 GM OINT PACKET TOP (17:57)
[2018-12-01] MEDS: VALACYCLOVIR 500 MG TAB PO (21:30)
[2018-12-02] MEDS: NS + KCL 20 MEQ 1,000 ML IV ×2 (00:43→14:16)
[2018-12-02] MEDS: ALBUTEROL HFA 8 GM INHALER INH ×3 (01:06→20:00)
[2018-12-02] MEDS: morphine 2 MG INJ IV (04:10)
[2018-12-02] MEDS: VALACYCLOVIR 500 MG TAB PO ×2 (08:44→20:49)
[2018-12-02] MEDS: CELECOXIB 200 MG CAP PO (08:46)
[2018-12-02] MEDS: HYDROCODONE/APAP (10/325) TAB PO ×4 (08:46→20:50)
[2018-12-02] MEDS: GABAPENTIN 100 MG CAP PO ×3 (08:46→20:48)
[2018-12-02] MEDS: FOLIC ACID 1 MG TAB PO (08:46)
[2018-12-02] MEDS: ENOXAPARIN 30 MG/0.3 ML SYG SC (08:55)
[2018-12-02] MEDS: CEFTRIAXONE 1 GM/50 ML (PMX) 50 ML IVPB (12:46)
[2018-12-02] MEDS: ONDANSETRON 4 MG INJ IV (14:15)
[2018-12-03] MEDS: morphine 2 MG INJ IV ×3 (02:26→23:36)
[2018-12-03] MEDS: ALBUTEROL HFA 8 GM INHALER INH ×5 (02:29→20:24)
[2018-12-03] MEDS: NS + KCL 20 MEQ 1,000 ML IV (06:05)
[2018-12-03] MEDS: HYDROCODONE/APAP (10/325) TAB PO ×4 (08:42→20:25)
[2018-12-03] MEDS: CELECOXIB 200 MG CAP PO (08:42)
[2018-12-03] MEDS: GABAPENTIN 100 MG CAP PO ×3 (08:42→20:24)
[2018-12-03] MEDS: FOLIC ACID 1 MG TAB PO (08:42)
[2018-12-03] MEDS: VALACYCLOVIR 500 MG TAB PO ×2 (08:43→20:24)
[2018-12-03] MEDS: ENOXAPARIN 30 MG/0.3 ML SYG SC (08:47)
[2018-12-03] MEDS: CEFTRIAXONE 1 GM/50 ML (PMX) 50 ML IVPB (13:05)
[2018-12-03] MEDS: ONDANSETRON 4 MG INJ IV (13:08)
[2018-12-03] MEDS: LORAZEPAM 1 MG TAB PO (21:56)
[2018-12-04] MEDS: ALBUTEROL HFA 8 GM INHALER INH ×4 (02:00→20:41)
[2018-12-04] MEDS: NS + KCL 20 MEQ 1,000 ML IV ×2 (03:44→22:53)
[2018-12-04] MEDS: morphine 2 MG INJ IV ×4 (04:11→22:53)
[2018-12-04 05:38] LABS: ADD MAN DIFF? NO
[2018-12-04 05:47] LABS: WHITE BLOOD COUNT 3.5 10^3/ul (4.8-10.8)
[2018-12-04 05:47] LABS: BASOPHILS % 0.3 % (0.0-2.0); EOSINOPHILS # 0.1 10^3/ul (0.0-0.5); EOSINOPHILS % 2.9 % (0.0-7.0); HEMATOCRIT 37.1 % (37.0-47.0); LYMPHOCYTES # 1.4 10^3/ul (0.8-2.9); LYMPHOCYTES % 38.8 % (15.0-51.0); MEAN CORPUSCULAR HEMOGLOBIN 26.8 pg (29.0-33.0); MEAN CORPUSCULAR HGB CONC 32.3 g/dl (32.0-37.0); MEAN PLATELET VOLUME 10.6 fl (7.4-10.4); MONOCYTE # 0.3 10^3/ul (0.3-0.9); MONOCYTES % 8.9 % (0.0-11.0); NEUTROPHIL # 1.7 10^3/ul (1.6-7.5); NEUTROPHILS % 48.8 % (39.0-77.0); PLATELET COUNT 231 10^3/UL (140-415); RED BLOOD COUNT 4.47 10^6/ul (4.20-5.40)
[2018-12-04 06:13] LABS: ANION GAP 10 (5-13); BLOOD UREA NITROGEN 5 mg/dl (7-20); CALCIUM 8.3 mg/dl (8.4-10.2); CARBON DIOXIDE 24 mmol/L (21-31); CHLORIDE 108 mmol/L (97-110); CREATININE 0.43 mg/dl (0.44-1.00); Estimated GFR > 60 mL/min (>60); GLUCOSE 88 mg/dl (70-220); POTASSIUM 3.5 mmol/L (3.5-5.1); SODIUM 142 mmol/L (135-144)
[2018-12-04] MEDS: ENOXAPARIN 30 MG/0.3 ML SYG SC (08:34)
[2018-12-04] MEDS: FOLIC ACID 1 MG TAB PO (08:35)
[2018-12-04] MEDS: GABAPENTIN 100 MG CAP PO ×3 (08:35→20:40)
[2018-12-04] MEDS: CELECOXIB 200 MG CAP PO (08:35)
[2018-12-04] MEDS: VALACYCLOVIR 500 MG TAB PO ×2 (09:35→20:40)
[2018-12-04] MEDS: HYDROCODONE/APAP (10/325) TAB PO ×4 (09:36→20:40)
[2018-12-04] MEDS: ONDANSETRON 4 MG INJ IV (09:55)
[2018-12-04] MEDS: CEFTRIAXONE 1 GM/50 ML (PMX) 50 ML IVPB (12:17)
[2018-12-05] MEDS: ALBUTEROL HFA 8 GM INHALER INH ×4 (02:00→20:49)
[2018-12-05] MEDS: morphine 2 MG INJ IV ×2 (03:30→23:00)
[2018-12-05] MEDS: HYDROCODONE/APAP (10/325) TAB PO ×3 (06:11→18:24)
[2018-12-05] MEDS: VALACYCLOVIR 500 MG TAB PO ×2 (08:13→20:50)
[2018-12-05] MEDS: GABAPENTIN 100 MG CAP PO ×3 (08:13→20:50)
[2018-12-05] MEDS: CELECOXIB 200 MG CAP PO (08:13)
[2018-12-05] MEDS: FOLIC ACID 1 MG TAB PO (08:13)
[2018-12-05] MEDS: ENOXAPARIN 30 MG/0.3 ML SYG SC (08:13)
[2018-12-05] MEDS: ONDANSETRON 4 MG INJ IV ×2 (12:20→23:05)
[2018-12-05 13:33] LABS: ADD MAN DIFF? NO
[2018-12-05 13:36] LABS: WHITE BLOOD COUNT 5.7 10^3/ul (4.8-10.8)
[2018-12-05 13:36] LABS: BASOPHILS % 0.2 % (0.0-2.0); EOSINOPHILS # 0.1 10^3/ul (0.0-0.5); EOSINOPHILS % 2.1 % (0.0-7.0); HEMATOCRIT 37.4 % (37.0-47.0); HEMOGLOBIN 11.9 g/dl (12.0-16.0); LYMPHOCYTES # 1.5 10^3/ul (0.8-2.9); LYMPHOCYTES % 26.9 % (15.0-51.0); MEAN CORPUSCULAR HEMOGLOBIN 26.5 pg (29.0-33.0); MEAN CORPUSCULAR HGB CONC 31.8 g/dl (32.0-37.0); MEAN CORPUSCULAR VOLUME 83.3 fl (82.0-101.0); MEAN PLATELET VOLUME 10.1 fl (7.4-10.4); MONOCYTE # 0.4 10^3/ul (0.3-0.9); MONOCYTES % 6.1 % (0.0-11.0); NEUTROPHIL # 3.7 10^3/ul (1.6-7.5); NEUTROPHILS % 64.4 % (39.0-77.0); PLATELET COUNT 218 10^3/UL (140-415); RED BLOOD COUNT 4.49 10^6/ul (4.20-5.40)
[2018-12-05 13:54] LABS: ANION GAP 8 (5-13); BLOOD UREA NITROGEN 6 mg/dl (7-20); CALCIUM 8.5 mg/dl (8.4-10.2); CARBON DIOXIDE 22 mmol/L (21-31); CHLORIDE 111 mmol/L (97-110); CREATININE 0.36 mg/dl (0.44-1.00); Estimated GFR > 60 mL/min (>60); GLUCOSE 108 mg/dl (70-220); POTASSIUM 3.5 mmol/L (3.5-5.1); SODIUM 141 mmol/L (135-144)
[2018-12-05] MEDS: NS + KCL 20 MEQ 1,000 ML IV (14:21)
[2018-12-06] MEDS: HYDROCODONE/APAP (10/325) TAB PO ×4 (00:27→18:29)
[2018-12-06] MEDS: ALBUTEROL HFA 8 GM INHALER INH ×4 (01:54→20:00)
[2018-12-06 05:06] LABS: ADD MAN DIFF? NO
[2018-12-06 05:11] LABS: WHITE BLOOD COUNT 5.4 10^3/ul (4.8-10.8)
[2018-12-06 05:11] LABS: BASOPHILS % 0.2 % (0.0-2.0); EOSINOPHILS # 0.2 10^3/ul (0.0-0.5); EOSINOPHILS % 2.8 % (0.0-7.0); HEMATOCRIT 35.2 % (37.0-47.0); HEMOGLOBIN 11.2 g/dl (12.0-16.0); LYMPHOCYTES # 1.6 10^3/ul (0.8-2.9); LYMPHOCYTES % 29.8 % (15.0-51.0); MEAN CORPUSCULAR HEMOGLOBIN 26.7 pg (29.0-33.0); MEAN CORPUSCULAR HGB CONC 31.8 g/dl (32.0-37.0); MEAN PLATELET VOLUME 10.1 fl (7.4-10.4); MONOCYTE # 0.3 10^3/ul (0.3-0.9); MONOCYTES % 6.1 % (0.0-11.0); NEUTROPHIL # 3.3 10^3/ul (1.6-7.5); NEUTROPHILS % 60.7 % (39.0-77.0); PLATELET COUNT 211 10^3/UL (140-415); RED BLOOD COUNT 4.19 10^6/ul (4.20-5.40); RED CELL DISTRIBUTION WIDTH 16.9 % (11.5-14.5)
[2018-12-06 05:38] LABS: ANION GAP 10 (5-13); BLOOD UREA NITROGEN 4 mg/dl (7-20); CALCIUM 8.5 mg/dl (8.4-10.2); CARBON DIOXIDE 22 mmol/L (21-31); CHLORIDE 110 mmol/L (97-110); CREATININE 0.37 mg/dl (0.44-1.00); Estimated GFR > 60 mL/min (>60); GLUCOSE 88 mg/dl (70-220); POTASSIUM 3.5 mmol/L (3.5-5.1); SODIUM 142 mmol/L (135-144)
[2018-12-06] MEDS: NS + KCL 20 MEQ 1,000 ML IV ×2 (05:38→06:16)
[2018-12-06] MEDS: GABAPENTIN 100 MG CAP PO ×3 (08:53→20:51)
[2018-12-06] MEDS: ENOXAPARIN 30 MG/0.3 ML SYG SC (08:53)
[2018-12-06] MEDS: CELECOXIB 200 MG CAP PO (08:53)
[2018-12-06] MEDS: VALACYCLOVIR 500 MG TAB PO ×2 (08:53→20:51)
[2018-12-06] MEDS: FOLIC ACID 1 MG TAB PO (08:54)
[2018-12-06] MEDS: morphine 2 MG INJ IV ×2 (10:59→23:03)
[2018-12-06] MEDS: IOHEXOL 14.3 MG(I)/ML (ADULT) BTL PO (10:59)
[2018-12-06] MEDS: ONDANSETRON 4 MG INJ IV ×2 (11:00→23:08)
[2018-12-06 11:33] LABS: ADD MAN DIFF? NO
[2018-12-06 11:39] LABS: BASOPHILS % 0.3 % (0.0-2.0); EOSINOPHILS # 0.1 10^3/ul (0.0-0.5); EOSINOPHILS % 1.3 % (0.0-7.0); HEMATOCRIT 37.3 % (37.0-47.0); HEMOGLOBIN 11.9 g/dl (12.0-16.0); LYMPHOCYTES # 1.5 10^3/ul (0.8-2.9); LYMPHOCYTES % 21.1 % (15.0-51.0); MEAN CORPUSCULAR HEMOGLOBIN 26.9 pg (29.0-33.0); MEAN CORPUSCULAR HGB CONC 31.9 g/dl (32.0-37.0); MEAN CORPUSCULAR VOLUME 84.2 fl (82.0-101.0); MONOCYTE # 0.4 10^3/ul (0.3-0.9); MONOCYTES % 5.8 % (0.0-11.0); NEUTROPHIL # 4.9 10^3/ul (1.6-7.5); NEUTROPHILS % 71.2 % (39.0-77.0); PLATELET COUNT 224 10^3/UL (140-415); RED BLOOD COUNT 4.43 10^6/ul (4.20-5.40); RED CELL DISTRIBUTION WIDTH 16.9 % (11.5-14.5)
[2018-12-06 11:39] LABS: WHITE BLOOD COUNT 6.9 10^3/ul (4.8-10.8)
[2018-12-06 11:57] LABS: ALANINE AMINOTRANSFERASE 25 IU/L (13-69); ALBUMIN 3.3 g/dl (3.3-4.9); ALKALINE PHOSPHATASE 95 IU/L (42-121); ASPARTATE AMINO TRANSFERASE 20 IU/L (15-46); BILIRUBIN,INDIRECT 0.3 mg/dl (0-1.1); BILIRUBIN,TOTAL 0.3 mg/dl (0.2-1.3); TOTAL PROTEIN 6.2 g/dl (6.1-8.1)
[2018-12-06 11:59] LABS: ANION GAP 14 (5-13); BLOOD UREA NITROGEN 3 mg/dl (7-20); CALCIUM 8.6 mg/dl (8.4-10.2); CARBON DIOXIDE 21 mmol/L (21-31); CHLORIDE 107 mmol/L (97-110); Estimated GFR > 60 mL/min (>60); GLUCOSE 87 mg/dl (70-220); LIPASE 38 U/L (23-300); POTASSIUM 3.7 mmol/L (3.5-5.1); SODIUM 142 mmol/L (135-144)
[2018-12-06 12:26] LABS: AMYLASE 45 U/L (11-123)
[2018-12-06] MEDS: IOHEXOL 300MG/ML 150 ML BTL (13:30)
[2018-12-06] MEDS: SOD CHLORIDE 0.9% 100 ML (13:30)
[2018-12-07] MEDS: HYDROCODONE/APAP (10/325) TAB PO ×4 (00:48→18:24)
[2018-12-07] MEDS: ALBUTEROL HFA 8 GM INHALER INH ×4 (02:00→21:23)
[2018-12-07] MEDS: ONDANSETRON 4 MG INJ IV (05:05)
[2018-12-07] MEDS: NS + KCL 20 MEQ 1,000 ML IV (05:05)
[2018-12-07] MEDS: morphine 2 MG INJ IV ×3 (05:05→21:28)
[2018-12-07 05:22] LABS: ADD MAN DIFF? NO
[2018-12-07 05:25] LABS: BASOPHILS % 0.4 % (0.0-2.0); EOSINOPHILS # 0.1 10^3/ul (0.0-0.5); EOSINOPHILS % 2.1 % (0.0-7.0); HEMATOCRIT 38.5 % (37.0-47.0); LYMPHOCYTES # 1.4 10^3/ul (0.8-2.9); LYMPHOCYTES % 25.9 % (15.0-51.0); MEAN CORPUSCULAR HEMOGLOBIN 26.5 pg (29.0-33.0); MEAN CORPUSCULAR HGB CONC 31.2 g/dl (32.0-37.0); MEAN CORPUSCULAR VOLUME 85.2 fl (82.0-101.0); MEAN PLATELET VOLUME 10.6 fl (7.4-10.4); MONOCYTE # 0.4 10^3/ul (0.3-0.9); MONOCYTES % 6.6 % (0.0-11.0); NEUTROPHIL # 3.4 10^3/ul (1.6-7.5); NEUTROPHILS % 64.6 % (39.0-77.0); PLATELET COUNT 243 10^3/UL (140-415); RED BLOOD COUNT 4.52 10^6/ul (4.20-5.40)
[2018-12-07 05:25] LABS: WHITE BLOOD COUNT 5.3 10^3/ul (4.8-10.8)
[2018-12-07 06:02] LABS: ANION GAP 13 (5-13); BLOOD UREA NITROGEN 2 mg/dl (7-20); CARBON DIOXIDE 17 mmol/L (21-31); CHLORIDE 112 mmol/L (97-110); CREATININE 0.37 mg/dl (0.44-1.00); Estimated GFR > 60 mL/min (>60); GLUCOSE 72 mg/dl (70-220); POTASSIUM 3.7 mmol/L (3.5-5.1); SODIUM 142 mmol/L (135-144)
[2018-12-07] MEDS: GABAPENTIN 100 MG CAP PO ×3 (09:47→21:23)
[2018-12-07] MEDS: CELECOXIB 200 MG CAP PO (09:47)
[2018-12-07] MEDS: FOLIC ACID 1 MG TAB PO (09:47)
[2018-12-07] MEDS: ENOXAPARIN 30 MG/0.3 ML SYG SC (09:49)
[2018-12-07] MEDS: predniSONE 10 MG TAB PO (15:00)
[2018-12-08] MEDS: HYDROCODONE/APAP (10/325) TAB PO ×4 (00:27→18:29)
[2018-12-08] MEDS: NS + KCL 20 MEQ 1,000 ML IV ×2 (00:31→18:29)
[2018-12-08] MEDS: ALBUTEROL HFA 8 GM INHALER INH ×4 (02:08→21:00)
[2018-12-08] MEDS: morphine 2 MG INJ IV ×2 (03:42→10:33)
[2018-12-08] MEDS: ONDANSETRON 4 MG INJ IV ×3 (04:05→21:16)
[2018-12-08] MEDS: CELECOXIB 200 MG CAP PO (08:58)
[2018-12-08] MEDS: GABAPENTIN 100 MG CAP PO ×3 (08:58→21:00)
[2018-12-08] MEDS: FOLIC ACID 1 MG TAB PO (08:58)
[2018-12-08] MEDS: predniSONE 10 MG TAB PO ×2 (08:59→12:34)
[2018-12-08] MEDS: ENOXAPARIN 30 MG/0.3 ML SYG SC ×2 (09:00→09:21)
[2018-12-08] MEDS: DIPHENHYDRAMINE 1%/ZINC 28.3 GM CR TOP ×2 (15:27→21:00)
[2018-12-08] MEDS: LIDOCAINE 2% (SDV) 5 ML INJ (17:24)
[2018-12-08] MEDS: PROPOFOL 20 ML (17:24)
[2018-12-08] MEDS ORDERED: HYDROmorphONE 1 MG/5 ML IV SYRINGE IV (17:30)
[2018-12-08] MEDS ORDERED: ONDANSETRON 4 MG INJ IV (17:30)
[2018-12-08] MEDS ORDERED: DIPHENHYDRAMINE 1%/ZINC 28.3 GM CR TOP (18:00)
[2018-12-09] MEDS: HYDROCODONE/APAP (10/325) TAB PO ×4 (00:22→18:36)
[2018-12-09] MEDS: ALBUTEROL HFA 8 GM INHALER INH ×4 (01:41→20:52)
[2018-12-09] MEDS: morphine 2 MG INJ IV ×2 (03:11→22:09)
[2018-12-09] MEDS: ONDANSETRON 4 MG INJ IV ×2 (04:29→20:58)
[2018-12-09] MEDS: DIPHENHYDRAMINE 1%/ZINC 28.3 GM CR TOP ×4 (05:52→18:36)
[2018-12-09] MEDS: CELECOXIB 200 MG CAP PO (08:25)
[2018-12-09] MEDS: FOLIC ACID 1 MG TAB PO (08:25)
[2018-12-09] MEDS: GABAPENTIN 100 MG CAP PO ×3 (08:25→20:52)
[2018-12-09] MEDS: predniSONE 10 MG TAB PO (08:26)
[2018-12-09] MEDS: DIPHENHYDRAMINE 50 MG CAP PO ×3 (08:26→20:51)
[2018-12-09] MEDS: ENOXAPARIN 30 MG/0.3 ML SYG SC (08:27)
[2018-12-09] MEDS ORDERED: METOCLOPRAMIDE 10 MG INJ IV (15:00)
[2018-12-09] MEDS: NS + KCL 20 MEQ 1,000 ML IV (17:10)
[2018-12-10] MEDS: HYDROCODONE/APAP (10/325) TAB PO ×4 (00:26→18:23)
[2018-12-10] MEDS: DIPHENHYDRAMINE 1%/ZINC 28.3 GM CR TOP ×4 (00:26→18:23)
[2018-12-10] MEDS: ALBUTEROL HFA 8 GM INHALER INH ×4 (02:00→20:00)
[2018-12-10] MEDS: morphine LIQ (10 MG/5 ML) CUP PO ×2 (03:22→08:31)
[2018-12-10] MEDS: NS + KCL 20 MEQ 1,000 ML IV (05:33)
[2018-12-10] MEDS: PANTOPRAZOLE (EC) 40 MG TAB PO (05:34)
[2018-12-10] MEDS: DIPHENHYDRAMINE 50 MG CAP PO ×2 (05:46→12:16)
[2018-12-10] MEDS: CELECOXIB 200 MG CAP PO (08:30)
[2018-12-10] MEDS: NYSTATIN 30 GM POWDER BTL TOP ×2 (08:30→20:33)
[2018-12-10] MEDS: GABAPENTIN 100 MG CAP PO ×3 (08:31→20:27)
[2018-12-10] MEDS: predniSONE 10 MG TAB PO (08:31)
[2018-12-10] MEDS: FOLIC ACID 1 MG TAB PO (08:31)
[2018-12-10] MEDS: ONDANSETRON 4 MG INJ IV (08:32)
[2018-12-10] MEDS: ENOXAPARIN 30 MG/0.3 ML SYG SC (08:32)
== END 2018-12-10 20:40 | disposition home health service (06) | DRG 872 ==
LOC: PP2 12-01 03:27 → E/R 02:55 → PP2 05:15
PROC: 0DB58ZX Excision of Esophagus, Via Natural or Artificial Opening Endoscopic, Diagnostic (ICD-10-PCS; principal; 2018-12-08 17:00)
PROC: 0DB78ZX Excision of Stomach, Pylorus, Via Natural or Artificial Opening Endoscopic, Diagnostic (ICD-10-PCS; 2018-12-08 17:00)
PROC: 0DB68ZX Excision of Stomach, Via Natural or Artificial Opening Endoscopic, Diagnostic (ICD-10-PCS; 2018-12-08 17:00)
DX: A41.9 Sepsis, unspecified organism (principal); J44.1 Chronic obstructive pulmonary disease with (acute) exacerbation; J44.0 Chronic obstructive pulmonary disease with (acute) lower respiratory infection; B00.89 Other herpesviral infection; K29.30 Chronic superficial gastritis without bleeding; K44.9 Diaphragmatic hernia without obstruction or gangrene; K21.0 Gastro-esophageal reflux disease with esophagitis; J20.9 Acute bronchitis, unspecified; M06.9 Rheumatoid arthritis, unspecified; Z96.651 Presence of right artificial knee joint; Z99.3 Dependence on wheelchair
CPT/HCPCS: 36415; 71045; 74176; 74178; 80048; 80053; 80076; 81001; 81003; 82150; 83690; 83880; 84484; 85025; 85610; 87040; 87070; 87075; 87400; 88305; 88312; 93005; 96374; 99285-25

== ENCOUNTER 2018-12-11 00:53 | Inpatient (IN) | payer OTHER ==
[2018-12-11] MEDS: ONDANSETRON 4 MG INJ IV ×2 (01:14→23:15)
[2018-12-11] MEDS: HYDROmorphONE 1 MG/ML SYG IV ×7 (01:15→17:09)
[2018-12-11] MEDS: SOD CHLORIDE 0.9% 1,000 ML IV (01:15)
[2018-12-11] MEDS: DIAZEPAM 5 MG/ML SYG IV (01:24)
[2018-12-11 01:45] LABS: ADD MAN DIFF? NO
[2018-12-11 01:49] LABS: WHITE BLOOD COUNT 12.1 10^3/ul (4.8-10.8)
[2018-12-11 01:49] LABS: BASOPHILS % 0.3 % (0.0-2.0); EOSINOPHILS % 0.1 % (0.0-7.0); HEMATOCRIT 37.9 % (37.0-47.0); HEMOGLOBIN 12.4 g/dl (12.0-16.0); LYMPHOCYTES # 1.2 10^3/ul (0.8-2.9); LYMPHOCYTES % 10.2 % (15.0-51.0); MEAN CORPUSCULAR HEMOGLOBIN 26.7 pg (29.0-33.0); MEAN CORPUSCULAR HGB CONC 32.7 g/dl (32.0-37.0); MEAN CORPUSCULAR VOLUME 81.5 fl (82.0-101.0); MEAN PLATELET VOLUME 10.5 fl (7.4-10.4); MONOCYTE # 0.6 10^3/ul (0.3-0.9); MONOCYTES % 4.7 % (0.0-11.0); NEUTROPHIL # 10.1 10^3/ul (1.6-7.5); NEUTROPHILS % 82.9 % (39.0-77.0); PLATELET COUNT 402 10^3/UL (140-415); RED BLOOD COUNT 4.65 10^6/ul (4.20-5.40)
[2018-12-11 02:04] LABS: PROTIME 12.3 Sec (11.9-14.9)
[2018-12-11 02:05] LABS: PARTIAL THROMBOPLASTIN TIME 34.2 Sec (23.0-35.0)
[2018-12-11] MEDS: HYDROmorphONE 0.5 MG/0.5 ML SYG IV (02:16)
[2018-12-11 02:18] LABS: ALANINE AMINOTRANSFERASE 23 IU/L (13-69); ALBUMIN 3.5 g/dl (3.3-4.9); ALBUMIN/GLOBULIN RATIO 1.09; ALKALINE PHOSPHATASE 88 IU/L (42-121); ANION GAP 11 (5-13); ASPARTATE AMINO TRANSFERASE 21 IU/L (15-46); BILIRUBIN,INDIRECT 0.3 mg/dl (0-1.1); BILIRUBIN,TOTAL 0.3 mg/dl (0.2-1.3); BLOOD UREA NITROGEN 8 mg/dl (7-20); CARBON DIOXIDE 24 mmol/L (21-31); CHLORIDE 108 mmol/L (97-110); CREATININE 0.49 mg/dl (0.44-1.00); Estimated GFR > 60 mL/min (>60); GLUCOSE 121 mg/dl (70-220); LIPASE 46 U/L (23-300); SODIUM 143 mmol/L (135-144); TOTAL PROTEIN 6.7 g/dl (6.1-8.1)
[2018-12-11] MEDS ORDERED: HYDROCODONE/APAP (5/325) TAB PO (03:30)
[2018-12-11] MEDS ORDERED: ACETAMINOPHEN 325 MG TAB PO (03:30)
[2018-12-11] MEDS ORDERED: LORAZEPAM 2 MG INJ IV (03:30)
[2018-12-11] MEDS: DEXTROSE 5%-0.9% NACL 1,000 ML IV ×2 (03:39→21:56)
[2018-12-11] MEDS: PANTOPRAZOLE (EC) 40 MG TAB PO (05:33)
[2018-12-11] MEDS: oxyCODONE 5 MG TAB PO (08:15)
[2018-12-11] MEDS ORDERED: oxyCODONE 5 MG TAB PO ×3 (08:30→23:00)
[2018-12-11] MEDS: FOLIC ACID 1 MG TAB PO (08:35)
[2018-12-11] MEDS: CELECOXIB 200 MG CAP PO (08:35)
[2018-12-11] MEDS: GABAPENTIN 100 MG CAP PO ×3 (08:35→21:00)
[2018-12-11] MEDS: ACETAMINOPHEN 500 MG TAB PO ×2 (08:36→16:30)
[2018-12-11] MEDS: DIPHENHYDRAMINE 25 MG CAP PO (10:36)
[2018-12-11] MEDS: predniSONE 10 MG TAB PO (13:00)
[2018-12-11] MEDS: POTASSIUM CHLORIDE 50 ML IVPB ×3 (15:15→18:12)
[2018-12-11] MEDS ORDERED: TOBRAMYCIN 1.2 GM POWDER (18:13)
[2018-12-11] MEDS ORDERED: VANCOMYCIN 1 GM INJ (18:14)
[2018-12-11] MEDS ORDERED: MIDAZOLAM 1 MG/ML 2 ML INJ (18:36)
[2018-12-11] MEDS ORDERED: morphine 10 MG INJ (19:45)
[2018-12-11] MEDS: VANCOMYCIN 1 GM INJ (21:53)
[2018-12-11] MEDS ORDERED: ROCURONIUM 50 MG INJ (22:14)
[2018-12-11] MEDS ORDERED: CEFAZOLIN 1 GM INJ (22:14)
[2018-12-11] MEDS ORDERED: LIDOCAINE 2% (SDV) 5 ML INJ (22:14)
[2018-12-11] MEDS ORDERED: ETOMIDATE 20 MG INJ (22:14)
[2018-12-11] MEDS ORDERED: ONDANSETRON 4 MG INJ (22:15)
[2018-12-11] MEDS ORDERED: METOCLOPRAMIDE 10 MG INJ (22:15)
[2018-12-11] MEDS ORDERED: morphine SULFATE/PF (10 MG/10 ML) INJ (22:17)
[2018-12-11] MEDS ORDERED: MAGNESIUM HYDROXIDE 30ML CUP PO (23:00)
[2018-12-11] MEDS ORDERED: SENNA/DOCUSATE NA (8.6MG/50MG) TAB PO (23:00)
[2018-12-11] MEDS ORDERED: BISACODYL 10 MG SUPP PR (23:00)
[2018-12-11] MEDS ORDERED: NALOXONE (0.4 MG/ML) INJ IV (23:00)
[2018-12-11] MEDS ORDERED: LABETALOL HCL 20MG INJ IV (23:00)
[2018-12-11] MEDS ORDERED: FENTAnyl 50 MCG/ML VIAL IV (23:00)
[2018-12-11] MEDS ORDERED: NACL 0.9% 3 ML SYG IV (23:00)
[2018-12-11] MEDS ORDERED: DIPHENHYDRAMINE 50 MG INJ IV (23:00)
[2018-12-11] MEDS ORDERED: METOCLOPRAMIDE 10 MG INJ IV (23:00)
[2018-12-11] MEDS ORDERED: NA PHOSPHATE/BIPHOS 133 ML ENEMA PR (23:00)
[2018-12-11] MEDS ORDERED: MEPERIDINE 25 MG INJ IV (23:00)
[2018-12-11] MEDS: HYDROmorphONE 1 MG/5 ML IV SYRINGE IV ×3 (23:14→23:27)
[2018-12-11] MEDS: CEFAZOLIN 2 GM/50 ML (PMX) 50 ML IVPB (23:30)
[2018-12-12] MEDS: LACTATED RINGER'S 1,000 ML IV ×3 (00:26→23:54)
[2018-12-12] MEDS: DOCUSATE SODIUM 100 MG CAP PO ×3 (00:26→20:06)
[2018-12-12] MEDS: HYDROmorphONE 1 MG/ML SYG IV ×2 (03:52→08:34)
[2018-12-12] MEDS ORDERED: VITAMIN A & D 5 GM OINT PACKET TOP (04:05)
[2018-12-12] MEDS: DIPHENHYDRAMINE 25 MG CAP PO ×3 (04:06→20:02)
[2018-12-12] MEDS: DEXTROSE 5%-0.9% NACL 1,000 ML IV ×2 (05:01→19:30)
[2018-12-12] MEDS: PANTOPRAZOLE (EC) 40 MG TAB PO ×2 (05:36)
[2018-12-12 05:51] LABS: ADD MAN DIFF? NO
[2018-12-12 05:56] LABS: WHITE BLOOD COUNT 9.9 10^3/ul (4.8-10.8)
[2018-12-12 05:56] LABS: BASOPHILS % 0.4 % (0.0-2.0); EOSINOPHILS # 0.1 10^3/ul (0.0-0.5); EOSINOPHILS % 1.3 % (0.0-7.0); HEMATOCRIT 31.2 % (37.0-47.0); HEMOGLOBIN 10.2 g/dl (12.0-16.0); LYMPHOCYTES # 1.6 10^3/ul (0.8-2.9); LYMPHOCYTES % 16.1 % (15.0-51.0); MEAN CORPUSCULAR HEMOGLOBIN 26.9 pg (29.0-33.0); MEAN CORPUSCULAR HGB CONC 32.7 g/dl (32.0-37.0); MEAN CORPUSCULAR VOLUME 82.3 fl (82.0-101.0); MEAN PLATELET VOLUME 10.7 fl (7.4-10.4); MONOCYTE # 0.6 10^3/ul (0.3-0.9); MONOCYTES % 5.7 % (0.0-11.0); NEUTROPHIL # 7.5 10^3/ul (1.6-7.5); NEUTROPHILS % 75.6 % (39.0-77.0); PLATELET COUNT 395 10^3/UL (140-415); RED BLOOD COUNT 3.79 10^6/ul (4.20-5.40); RED CELL DISTRIBUTION WIDTH 17.3 % (11.5-14.5)
[2018-12-12 06:25] LABS: INR 1.02; PROTIME 13.5 Sec (11.9-14.9); PT RATIO 1.1
[2018-12-12] MEDS: CEFAZOLIN 2 GM/50 ML (PMX) 50 ML IVPB ×2 (06:28→15:00)
[2018-12-12 06:37] LABS: ANION GAP 8 (5-13); BLOOD UREA NITROGEN 2 mg/dl (7-20); CALCIUM 7.8 mg/dl (8.4-10.2); CARBON DIOXIDE 30 mmol/L (21-31); CHLORIDE 101 mmol/L (97-110); Estimated GFR > 60 mL/min (>60); GLUCOSE 109 mg/dl (70-220); SODIUM 139 mmol/L (135-144)
[2018-12-12 06:47] LABS: POTASSIUM 2.9 mmol/L (3.5-5.1)
[2018-12-12] MEDS ORDERED: POTASSIUM CHLORIDE 250 ML IVPB (08:00)
[2018-12-12] MEDS ORDERED: ONDANSETRON 4 MG INJ (08:32)
[2018-12-12] MEDS: GABAPENTIN 100 MG CAP PO ×3 (08:33→20:02)
[2018-12-12] MEDS: predniSONE 10 MG TAB PO (08:33)
[2018-12-12] MEDS: CELECOXIB 200 MG CAP PO (08:33)
[2018-12-12] MEDS: ONDANSETRON 4 MG INJ IV (08:34)
[2018-12-12] MEDS: FOLIC ACID 1 MG TAB PO (08:34)
[2018-12-12] MEDS: ENOXAPARIN 40 MG/0.4 ML SYG SC (08:43)
[2018-12-12] MEDS: POTASSIUM CHLORIDE 100 ML IVPB (08:49)
[2018-12-12] MEDS: DIPHENHYDRAMINE 50 MG INJ IV (09:56)
[2018-12-12] MEDS: oxyCODONE 5 MG TAB PO ×3 (11:59→20:06)
[2018-12-12] MEDS: POTASSIUM CHLORIDE 20 MEQ POWDER FOR ORAL SOLN PO ×2 (13:20→20:02)
[2018-12-12] MEDS: CEFAZOLIN 1 GM INJ IM (16:46)
[2018-12-12] MEDS: GABAPENTIN 300 MG CAP PO (20:08)
[2018-12-12] MEDS: NYSTATIN 30 GM POWDER BTL TOP (21:00)
[2018-12-13] MEDS: oxyCODONE 5 MG TAB PO ×6 (00:08→21:10)
[2018-12-13] MEDS: DIPHENHYDRAMINE 25 MG CAP PO ×2 (04:00→09:56)
[2018-12-13 05:34] LABS: INR 1.08; PROTIME 14.1 Sec (11.9-14.9); PT RATIO 1.1
[2018-12-13] MEDS: PANTOPRAZOLE (EC) 40 MG TAB PO ×2 (05:43→05:44)
[2018-12-13] MEDS: ACETAMINOPHEN 500 MG TAB PO ×3 (05:43→22:20)
[2018-12-13 06:02] LABS: ANION GAP 8 (5-13); BLOOD UREA NITROGEN 6 mg/dl (7-20); CALCIUM 8.2 mg/dl (8.4-10.2); CARBON DIOXIDE 32 mmol/L (21-31); CHLORIDE 98 mmol/L (97-110); CREATININE 0.48 mg/dl (0.44-1.00); Estimated GFR > 60 mL/min (>60); GLUCOSE 98 mg/dl (70-220); POTASSIUM 3.7 mmol/L (3.5-5.1); SODIUM 138 mmol/L (135-144)
[2018-12-13] MEDS: BETHANECHOL 25 MG TAB PO (06:26)
[2018-12-13] MEDS: FOLIC ACID 1 MG TAB PO (08:25)
[2018-12-13] MEDS: CELECOXIB 200 MG CAP PO (08:25)
[2018-12-13] MEDS: predniSONE 10 MG TAB PO (08:25)
[2018-12-13] MEDS: GABAPENTIN 100 MG CAP PO ×3 (08:25→21:12)
[2018-12-13] MEDS: DOCUSATE SODIUM 100 MG CAP PO ×2 (08:25→21:00)
[2018-12-13] MEDS: ENOXAPARIN 40 MG/0.4 ML SYG SC (08:27)
[2018-12-13] MEDS: NYSTATIN 30 GM POWDER BTL TOP ×2 (08:28→21:00)
[2018-12-13] MEDS: DEXTROSE 5%-0.9% NACL 1,000 ML IV ×2 (08:28→22:10)
[2018-12-13] MEDS ORDERED: DIPHENHYDRAMINE 50 MG INJ IV (11:00)
[2018-12-13] MEDS: LACTATED RINGER'S 1,000 ML IV (12:24)
[2018-12-13] MEDS: METHOTREXATE 2.5 MG TAB PO (13:03)
[2018-12-13] MEDS: DIPHENHYDRAMINE 50 MG CAP PO ×2 (16:49→23:16)
[2018-12-13] MEDS: GABAPENTIN 300 MG CAP PO (21:12)
[2018-12-14] MEDS: LACTATED RINGER'S 1,000 ML IV (00:22)
[2018-12-14] MEDS: oxyCODONE 5 MG TAB PO ×5 (03:34→20:04)
[2018-12-14] MEDS: PANTOPRAZOLE (EC) 40 MG TAB PO ×2 (05:10→06:00)
[2018-12-14] MEDS: ACETAMINOPHEN 500 MG TAB PO ×3 (05:11→21:37)
[2018-12-14] MEDS: NYSTATIN 30 GM POWDER BTL TOP ×3 (05:11→21:37)
[2018-12-14] MEDS: ONDANSETRON (ODT) 4 MG TAB ODT (05:11)
[2018-12-14] MEDS: DIPHENHYDRAMINE 50 MG CAP PO ×3 (05:13→17:34)
[2018-12-14 05:19] LABS: ADD MAN DIFF? NO
[2018-12-14 05:25] LABS: WHITE BLOOD COUNT 7.5 10^3/ul (4.8-10.8)
[2018-12-14 05:25] LABS: BASOPHILS % 0.3 % (0.0-2.0); EOSINOPHILS # 0.2 10^3/ul (0.0-0.5); EOSINOPHILS % 2.1 % (0.0-7.0); HEMATOCRIT 27.2 % (37.0-47.0); HEMOGLOBIN 8.7 g/dl (12.0-16.0); LYMPHOCYTES # 1.6 10^3/ul (0.8-2.9); MEAN CORPUSCULAR VOLUME 87.5 fl (82.0-101.0); MEAN PLATELET VOLUME 11.3 fl (7.4-10.4); MONOCYTE # 0.4 10^3/ul (0.3-0.9); MONOCYTES % 5.2 % (0.0-11.0); NEUTROPHIL # 5.2 10^3/ul (1.6-7.5); NEUTROPHILS % 69.7 % (39.0-77.0); PLATELET COUNT 287 10^3/UL (140-415); RED BLOOD COUNT 3.11 10^6/ul (4.20-5.40); RED CELL DISTRIBUTION WIDTH 17.2 % (11.5-14.5)
[2018-12-14 05:47] LABS: INR 0.89; PROTIME 12.2 Sec (11.9-14.9)
[2018-12-14] MEDS: DOCUSATE SODIUM 100 MG CAP PO ×2 (09:00→21:00)
[2018-12-14] MEDS: FOLIC ACID 1 MG TAB PO (09:19)
[2018-12-14] MEDS: CELECOXIB 200 MG CAP PO (09:19)
[2018-12-14] MEDS: predniSONE 10 MG TAB PO (09:20)
[2018-12-14] MEDS: GABAPENTIN 100 MG CAP PO ×3 (09:20→21:37)
[2018-12-14] MEDS: ENOXAPARIN 40 MG/0.4 ML SYG SC (09:24)
[2018-12-14] MEDS: GABAPENTIN 300 MG CAP PO (21:37)
[2018-12-15] MEDS: oxyCODONE 5 MG TAB PO ×6 (00:08→20:17)
[2018-12-15] MEDS: DIPHENHYDRAMINE 50 MG CAP PO (01:23)
[2018-12-15] MEDS: ACETAMINOPHEN 500 MG TAB PO ×3 (05:37→21:29)
[2018-12-15] MEDS: PANTOPRAZOLE (EC) 40 MG TAB PO ×2 (05:37→06:00)
[2018-12-15 05:55] LABS: INR 0.89; PROTIME 12.2 Sec (11.9-14.9)
[2018-12-15] MEDS: NYSTATIN 30 GM POWDER BTL TOP ×2 (08:57→20:45)
[2018-12-15] MEDS: predniSONE 10 MG TAB PO (08:58)
[2018-12-15] MEDS: GABAPENTIN 100 MG CAP PO ×3 (08:58→20:45)
[2018-12-15] MEDS: CELECOXIB 200 MG CAP PO (08:58)
[2018-12-15] MEDS: ENOXAPARIN 40 MG/0.4 ML SYG SC (08:58)
[2018-12-15] MEDS: FOLIC ACID 1 MG TAB PO (08:58)
[2018-12-15] MEDS: DIPHENHYDRAMINE 25 MG CAP PO (08:58)
[2018-12-15] MEDS: GABAPENTIN 300 MG CAP PO (20:45)
[2018-12-16] MEDS: oxyCODONE 5 MG TAB PO ×6 (00:44→20:57)
[2018-12-16] MEDS: PANTOPRAZOLE (EC) 40 MG TAB PO ×2 (05:44→06:00)
[2018-12-16] MEDS: ACETAMINOPHEN 500 MG TAB PO ×4 (05:44→23:02)
[2018-12-16] MEDS: CELECOXIB 200 MG CAP PO (08:42)
[2018-12-16] MEDS: GABAPENTIN 100 MG CAP PO ×3 (08:43→21:00)
[2018-12-16] MEDS: ENOXAPARIN 40 MG/0.4 ML SYG SC (08:43)
[2018-12-16] MEDS: FOLIC ACID 1 MG TAB PO (08:43)
[2018-12-16] MEDS: predniSONE 10 MG TAB PO (08:43)
[2018-12-16] MEDS: NYSTATIN 30 GM POWDER BTL TOP ×2 (08:44→21:02)
[2018-12-16 09:08] LABS: ADD MAN DIFF? NO
[2018-12-16 09:15] LABS: WHITE BLOOD COUNT 7.2 10^3/ul (4.8-10.8)
[2018-12-16 09:15] LABS: BASOPHILS % 0.6 % (0.0-2.0); EOSINOPHILS # 0.2 10^3/ul (0.0-0.5); EOSINOPHILS % 2.1 % (0.0-7.0); HEMATOCRIT 28.3 % (37.0-47.0); HEMOGLOBIN 8.8 g/dl (12.0-16.0); LYMPHOCYTES # 2.4 10^3/ul (0.8-2.9); LYMPHOCYTES % 33.5 % (15.0-51.0); MEAN CORPUSCULAR HEMOGLOBIN 27.2 pg (29.0-33.0); MEAN CORPUSCULAR HGB CONC 31.1 g/dl (32.0-37.0); MEAN CORPUSCULAR VOLUME 87.6 fl (82.0-101.0); MEAN PLATELET VOLUME 10.3 fl (7.4-10.4); MONOCYTE # 0.5 10^3/ul (0.3-0.9); MONOCYTES % 6.4 % (0.0-11.0); NEUTROPHIL # 4.1 10^3/ul (1.6-7.5); NEUTROPHILS % 56.6 % (39.0-77.0); PLATELET COUNT 342 10^3/UL (140-415); RED BLOOD COUNT 3.23 10^6/ul (4.20-5.40); RED CELL DISTRIBUTION WIDTH 17.2 % (11.5-14.5)
[2018-12-16] MEDS: ONDANSETRON (ODT) 4 MG TAB ODT (09:29)
[2018-12-16 09:32] LABS: INR 0.81; PROTIME 11.3 Sec (11.9-14.9); PT RATIO 0.9
[2018-12-16 09:46] LABS: ANION GAP 8 (5-13); BLOOD UREA NITROGEN 10 mg/dl (7-20); CALCIUM 8.4 mg/dl (8.4-10.2); CARBON DIOXIDE 30 mmol/L (21-31); CHLORIDE 102 mmol/L (97-110); CREATININE 0.44 mg/dl (0.44-1.00); Estimated GFR > 60 mL/min (>60); GLUCOSE 82 mg/dl (70-220); POTASSIUM 3.6 mmol/L (3.5-5.1); SODIUM 140 mmol/L (135-144)
[2018-12-16] MEDS: LORAZEPAM 0.5 MG TAB PO ×2 (16:30→23:02)
[2018-12-16] MEDS: DOCUSATE SODIUM 100 MG CAP PO (20:57)
[2018-12-16] MEDS: GABAPENTIN 300 MG CAP PO (20:57)
[2018-12-16] MEDS ORDERED: VITAMIN A & D 5 GM OINT PACKET TOP (21:00)
[2018-12-17] MEDS: oxyCODONE 5 MG TAB PO ×5 (00:53→16:17)
[2018-12-17] MEDS: ACETAMINOPHEN 500 MG TAB PO ×2 (05:05→13:05)
[2018-12-17] MEDS: PANTOPRAZOLE (EC) 40 MG TAB PO ×2 (05:06→06:00)
[2018-12-17] MEDS: NYSTATIN 30 GM POWDER BTL TOP (09:04)
[2018-12-17] MEDS: ONDANSETRON (ODT) 4 MG TAB ODT (09:05)
[2018-12-17] MEDS: GABAPENTIN 100 MG CAP PO ×2 (09:42→13:05)
[2018-12-17] MEDS: CELECOXIB 200 MG CAP PO (09:42)
[2018-12-17] MEDS: predniSONE 10 MG TAB PO (09:42)
[2018-12-17] MEDS: FOLIC ACID 1 MG TAB PO (09:43)
[2018-12-17] MEDS: ENOXAPARIN 40 MG/0.4 ML SYG SC (09:46)
[2018-12-17] MEDS: LORAZEPAM 0.5 MG TAB PO (16:17)
== END 2018-12-17 17:10 | DRG 470 ==
LOC: MS1 02:53 → E/R 00:53 → MS1 02:06
PROC: 0SRR019 Replacement of Right Hip Joint, Femoral Surface with Metal Synthetic Substitute, Cemented, Open Approach (ICD-10-PCS; principal; 2018-12-11 17:00)
DX: S72.001A Fracture of unspecified part of neck of right femur, initial encounter for closed fracture (principal); J44.9 Chronic obstructive pulmonary disease, unspecified; F41.9 Anxiety disorder, unspecified; M06.9 Rheumatoid arthritis, unspecified; K29.70 Gastritis, unspecified, without bleeding; K20.9 Esophagitis, unspecified; R53.81 Other malaise; E87.6 Hypokalemia; W06.XXXA Fall from bed, initial encounter; Y92.89 Other specified places as the place of occurrence of the external cause
CPT/HCPCS: 36415; 72170; 73500; 73510; 73550; 80048; 80053; 83690; 85025; 85610; 85730; 86850; 86900; 86901; 88305; 88311; 93005; 93306; 96361; 96374; 96375; 97110; 97162; 97165; 97530; 97535; 99285-25

== ENCOUNTER 2019-06-09 19:53 | Inpatient (IN) | payer OTHER ==
[2019-06-09] MEDS: ONDANSETRON 4 MG INJ IV (20:06)
[2019-06-09] MEDS: SOD CHLORIDE 0.9% 1,000 ML IV ×2 (20:07→21:52)
[2019-06-09] MEDS: HYDROmorphONE 1 MG/ML SYG IV (20:07)
[2019-06-09 20:15] LABS: ADD MAN DIFF? NO
[2019-06-09 20:16] LABS: WHITE BLOOD COUNT 17.8 10^3/ul (4.8-10.8)
[2019-06-09 20:16] LABS: BASOPHIL # 0.1 10^3/ul (0.0-0.1); BASOPHILS % 0.3 % (0.0-2.0); HEMATOCRIT 43.5 % (37.0-47.0); HEMOGLOBIN 13.9 g/dl (12.0-16.0); LYMPHOCYTES % 11.2 % (15.0-51.0); MEAN CORPUSCULAR HEMOGLOBIN 27.7 pg (29.0-33.0); MEAN CORPUSCULAR VOLUME 86.7 fl (82.0-101.0); MEAN PLATELET VOLUME 9.8 fl (7.4-10.4); MONOCYTE # 0.8 10^3/ul (0.3-0.9); MONOCYTES % 4.7 % (0.0-11.0); NEUTROPHIL # 14.9 10^3/ul (1.6-7.5); NEUTROPHILS % 83.1 % (39.0-77.0); PLATELET COUNT 361 10^3/UL (140-415); RED BLOOD COUNT 5.02 10^6/ul (4.20-5.40); RED CELL DISTRIBUTION WIDTH 15.9 % (11.5-14.5)
[2019-06-09 20:37] LABS: ALANINE AMINOTRANSFERASE 18 IU/L (13-69); ALBUMIN 4.4 g/dl (3.3-4.9); ALBUMIN/GLOBULIN RATIO 1.37; ALKALINE PHOSPHATASE 90 IU/L (42-121); ANION GAP 12 (5-13); ASPARTATE AMINO TRANSFERASE 28 IU/L (15-46); BILIRUBIN,INDIRECT 0.5 mg/dl (0-1.1); BILIRUBIN,TOTAL 0.5 mg/dl (0.2-1.3); BLOOD UREA NITROGEN 14 mg/dl (7-20); CALCIUM 9.6 mg/dl (8.4-10.2); CARBON DIOXIDE 25 mmol/L (21-31); CHLORIDE 103 mmol/L (97-110); CREATININE 0.62 mg/dl (0.44-1.00); Estimated GFR > 60 mL/min (>60); GLUCOSE 124 mg/dl (70-220); LIPASE 27 U/L (23-300); POTASSIUM 3.6 mmol/L (3.5-5.1); SODIUM 140 mmol/L (135-144); TOTAL PROTEIN 7.6 g/dl (6.1-8.1)
[2019-06-09] MEDS: ASPIRIN 81 MG TAB PO (21:15)
[2019-06-09 21:34] LABS: ADD UMIC YES; UR ASCORBIC ACID NEGATIVE (NEGATIVE); UR BILIRUBIN (Dip) NEGATIVE (NEGATIVE); UR BLOOD (Dip) NEGATIVE (NEGATIVE); UR CLARITY CLOUDY (CLEAR); UR COLOR YELLOW (YELLOW); UR GLUCOSE (Dip) NEGATIVE (NEGATIVE); UR KETONES (Dip) 1+ mg/dL (NEGATIVE); UR LEUKOCYTE ESTERASE (Dip) NEGATIVE Leu/ul (NEGATIVE); UR NITRITE (Dip) NEGATIVE (NEGATIVE); UR RBC 2 /HPF (0-5); UR SPECIFIC GRAVITY (Dip) 1.013 (1.003-1.030); UR SQUAMOUS EPITHELIAL CELL FEW /HPF (FEW); UR TOTAL PROTEIN (Dip) NEGATIVE (NEGATIVE); UR UROBILINOGEN (Dip) NEGATIVE (NEGATIVE); UR WBC 3 /HPF (0-5)
[2019-06-09] MEDS: CEFTRIAXONE 1 GM/50 ML (PMX) 50 ML IVPB (21:52)
[2019-06-09] MEDS: LORAZEPAM 2 MG INJ IV (22:00)
[2019-06-09] MEDS ORDERED: ACETAMINOPHEN 500 MG TAB PO (23:30)
[2019-06-09] MEDS ORDERED: FERROUS SULFATE (EC) 325 MG TAB PO (23:30)
[2019-06-09] MEDS ORDERED: ASPIRIN 81 MG TAB PO (23:30)
[2019-06-09] MEDS ORDERED: PANTOPRAZOLE 40 MG INJ IV (23:30)
[2019-06-10] MEDS: D5W-0.45 NACL + KCL 20 MEQ 1,000 ML IV ×2 (00:41→14:04)
[2019-06-10] MEDS: HYDROmorphONE 0.5 MG/0.5 ML SYG IV ×5 (01:30→20:32)
[2019-06-10] MEDS: PANTOPRAZOLE 40 MG INJ IV (05:31)
[2019-06-10 06:46] LABS: ANION GAP 8 (5-13); ASPARTATE AMINO TRANSFERASE 35 IU/L (15-46); BLOOD UREA NITROGEN 10 mg/dl (7-20); CALCIUM 8.7 mg/dl (8.4-10.2); CARBON DIOXIDE 25 mmol/L (21-31); CHLORIDE 108 mmol/L (97-110); CREATININE 0.55 mg/dl (0.44-1.00); Estimated GFR > 60 mL/min (>60); GLUCOSE 89 mg/dl (70-220); POTASSIUM 3.6 mmol/L (3.5-5.1); SODIUM 141 mmol/L (135-144)
[2019-06-10 06:47] LABS: ALANINE AMINOTRANSFERASE 20 IU/L (13-69); ALBUMIN 3.1 g/dl (3.3-4.9); ALBUMIN/GLOBULIN RATIO 1.06; ALKALINE PHOSPHATASE 65 IU/L (42-121); BILIRUBIN,INDIRECT 0.7 mg/dl (0-1.1); BILIRUBIN,TOTAL 0.7 mg/dl (0.2-1.3); CHOLESTEROL 191 mg/dl (100-200); HDL CHOLESTEROL 47 mg/dl (35-98); LDL CHOLESTEROL,CALCULATED 116 mg/dl; TRIGLYCERIDES 141 mg/dl (0-149)
[2019-06-10] MEDS: GABAPENTIN 300 MG CAP PO ×3 (08:52→20:38)
[2019-06-10] MEDS: FERROUS SULFATE (EC) 325 MG TAB PO (08:52)
[2019-06-10] MEDS: predniSONE 10 MG TAB PO (08:52)
[2019-06-10] MEDS: FOLIC ACID 1 MG TAB PO (08:52)
[2019-06-10] MEDS: ASPIRIN 81 MG TAB PO (08:53)
[2019-06-10] MEDS: ONDANSETRON 4 MG INJ IV (10:04)
[2019-06-10 12:46] LABS: TROPONIN-I 0.974 ng/ml (0.000-0.120)
[2019-06-10] MEDS: LORAZEPAM 0.5 MG TAB PO (14:03)
[2019-06-10] MEDS: METOPROLOL 50 MG TAB PO (14:04)
[2019-06-10] MEDS: ENOXAPARIN 30 MG/0.3 ML SYG SC (14:24)
[2019-06-10] MEDS: NITROGLYCERIN AEROSOL (4.9 GM) (16:14)
[2019-06-10] MEDS: IOHEXOL 100 ML (16:15)
[2019-06-10] MEDS: SOD CHLORIDE 0.9% 100 ML (16:15)
[2019-06-10] MEDS: ATORVASTATIN 80 MG TAB PO (20:38)
[2019-06-11] MEDS: HYDROmorphONE 0.5 MG/0.5 ML SYG IV ×6 (00:33→22:13)
[2019-06-11] MEDS: D5W-0.45 NACL + KCL 20 MEQ 1,000 ML IV ×3 (02:10→21:10)
[2019-06-11] MEDS: ONDANSETRON 4 MG INJ IV ×2 (04:55→15:30)
[2019-06-11] MEDS: PANTOPRAZOLE 40 MG INJ IV (05:00)
[2019-06-11] MEDS: FERROUS SULFATE (EC) 325 MG TAB PO (08:44)
[2019-06-11] MEDS: FOLIC ACID 1 MG TAB PO (08:44)
[2019-06-11] MEDS: GABAPENTIN 300 MG CAP PO ×3 (08:44→21:10)
[2019-06-11] MEDS: CLOPIDOGREL 75 MG TAB PO (08:45)
[2019-06-11] MEDS: ASPIRIN 81 MG TAB PO (08:45)
[2019-06-11] MEDS: predniSONE 10 MG TAB PO (08:45)
[2019-06-11] MEDS: ENOXAPARIN 30 MG/0.3 ML SYG SC (09:28)
[2019-06-11] MEDS: CEFTRIAXONE 1 GM/50 ML (PMX) 50 ML IVPB (15:19)
[2019-06-11] MEDS: ATORVASTATIN 80 MG TAB PO (21:10)
[2019-06-12] MEDS: HYDROmorphONE 0.5 MG/0.5 ML SYG IV ×6 (02:50→23:44)
[2019-06-12 06:12] LABS: ADD MAN DIFF? NO
[2019-06-12 06:19] LABS: WHITE BLOOD COUNT 8.9 10^3/ul (4.8-10.8)
[2019-06-12 06:19] LABS: BASOPHILS % 0.5 % (0.0-2.0); EOSINOPHILS # 0.2 10^3/ul (0.0-0.5); EOSINOPHILS % 2.6 % (0.0-7.0); HEMATOCRIT 39.7 % (37.0-47.0); HEMOGLOBIN 12.6 g/dl (12.0-16.0); LYMPHOCYTES # 2.4 10^3/ul (0.8-2.9); LYMPHOCYTES % 26.6 % (15.0-51.0); MEAN CORPUSCULAR HEMOGLOBIN 28.1 pg (29.0-33.0); MEAN CORPUSCULAR HGB CONC 31.7 g/dl (32.0-37.0); MEAN CORPUSCULAR VOLUME 88.4 fl (82.0-101.0); MEAN PLATELET VOLUME 10.3 fl (7.4-10.4); MONOCYTE # 0.4 10^3/ul (0.3-0.9); MONOCYTES % 4.9 % (0.0-11.0); NEUTROPHIL # 5.7 10^3/ul (1.6-7.5); NEUTROPHILS % 64.7 % (39.0-77.0); PLATELET COUNT 244 10^3/UL (140-415); RED BLOOD COUNT 4.49 10^6/ul (4.20-5.40)
[2019-06-12 06:39] LABS: ANION GAP 7 (5-13); BLOOD UREA NITROGEN 4 mg/dl (7-20); CALCIUM 8.8 mg/dl (8.4-10.2); CARBON DIOXIDE 26 mmol/L (21-31); CHLORIDE 106 mmol/L (97-110); CREATININE 0.52 mg/dl (0.44-1.00); Estimated GFR > 60 mL/min (>60); GLUCOSE 94 mg/dl (70-220); POTASSIUM 3.4 mmol/L (3.5-5.1); SODIUM 139 mmol/L (135-144)
[2019-06-12] MEDS: PANTOPRAZOLE 40 MG INJ IV (07:01)
[2019-06-12] MEDS: FERROUS SULFATE (EC) 325 MG TAB PO (09:06)
[2019-06-12] MEDS: ASPIRIN 81 MG TAB PO (09:06)
[2019-06-12] MEDS: predniSONE 10 MG TAB PO (09:07)
[2019-06-12] MEDS: CLOPIDOGREL 75 MG TAB PO (09:07)
[2019-06-12] MEDS: GABAPENTIN 300 MG CAP PO ×3 (09:07→20:30)
[2019-06-12] MEDS: FOLIC ACID 1 MG TAB PO (09:07)
[2019-06-12] MEDS: ENOXAPARIN 30 MG/0.3 ML SYG SC (09:08)
[2019-06-12] MEDS: D5W-0.45 NACL + KCL 20 MEQ 1,000 ML IV ×2 (11:21→18:10)
[2019-06-12] MEDS: ONDANSETRON 4 MG INJ IV (12:32)
[2019-06-12] MEDS: POTASSIUM CHLORIDE (SR) 20 MEQ TAB PO (14:34)
[2019-06-12] MEDS: LORAZEPAM 0.5 MG TAB PO (14:34)
[2019-06-12] MEDS: CEFTRIAXONE 1 GM/50 ML (PMX) 50 ML IVPB (14:34)
[2019-06-12] MEDS: ATORVASTATIN 80 MG TAB PO (20:30)
[2019-06-13] MEDS: ACETAMINOPHEN 500 MG TAB PO ×2 (02:23→23:19)
[2019-06-13] MEDS: HYDROmorphONE 0.5 MG/0.5 ML SYG IV ×5 (03:49→20:42)
[2019-06-13] MEDS: PANTOPRAZOLE 40 MG INJ IV (05:44)
[2019-06-13] MEDS: LORAZEPAM 0.5 MG TAB PO ×2 (05:48→20:42)
[2019-06-13] MEDS: D5W-0.45 NACL + KCL 20 MEQ 1,000 ML IV ×2 (06:19)
[2019-06-13] MEDS: ASPIRIN 81 MG TAB PO (08:09)
[2019-06-13] MEDS: FERROUS SULFATE (EC) 325 MG TAB PO (08:09)
[2019-06-13] MEDS: GABAPENTIN 300 MG CAP PO ×3 (08:09→20:41)
[2019-06-13] MEDS: predniSONE 10 MG TAB PO (08:09)
[2019-06-13] MEDS: CLOPIDOGREL 75 MG TAB PO (08:09)
[2019-06-13] MEDS: FOLIC ACID 1 MG TAB PO (08:09)
[2019-06-13] MEDS: ENOXAPARIN 30 MG/0.3 ML SYG SC (08:28)
[2019-06-13] MEDS: CEFTRIAXONE 1 GM/50 ML (PMX) 50 ML IVPB (14:00)
[2019-06-13] MEDS: ONDANSETRON 4 MG INJ IV (18:06)
[2019-06-13] MEDS: ATORVASTATIN 80 MG TAB PO (20:41)
[2019-06-14] MEDS: HYDROmorphONE 0.5 MG/0.5 ML SYG IV ×6 (00:35→21:47)
[2019-06-14] MEDS: D5W-0.45 NACL + KCL 20 MEQ 1,000 ML IV ×3 (02:40→21:48)
[2019-06-14] MEDS: LORAZEPAM 0.5 MG TAB PO (05:00)
[2019-06-14] MEDS: PANTOPRAZOLE 40 MG INJ IV (05:28)
[2019-06-14] MEDS: FOLIC ACID 1 MG TAB PO (08:32)
[2019-06-14] MEDS: FERROUS SULFATE (EC) 325 MG TAB PO (08:32)
[2019-06-14] MEDS: GABAPENTIN 300 MG CAP PO ×3 (08:32→21:47)
[2019-06-14] MEDS: ASPIRIN 81 MG TAB PO (08:32)
[2019-06-14] MEDS: CLOPIDOGREL 75 MG TAB PO (08:33)
[2019-06-14] MEDS: predniSONE 10 MG TAB PO (08:33)
[2019-06-14] MEDS: ENOXAPARIN 30 MG/0.3 ML SYG SC (08:47)
[2019-06-14] MEDS: ONDANSETRON 4 MG INJ IV (10:24)
[2019-06-14] MEDS: CEFTRIAXONE 1 GM/50 ML (PMX) 50 ML IVPB (14:59)
[2019-06-14] MEDS: METHOTREXATE 2.5 MG TAB PO (15:33)
[2019-06-14] MEDS: MAGNESIUM SULFATE 2 GM/50 ML 50 ML IVPB (16:06)
[2019-06-14] MEDS: METOPROLOL 25 MG TAB PO ×2 (16:06→21:47)
[2019-06-14] MEDS: ATORVASTATIN 80 MG TAB PO (21:47)
[2019-06-14] MEDS: APIXABAN 5 MG TABLET PO (21:47)
[2019-06-15] MEDS: LORAZEPAM 0.5 MG TAB PO ×2 (00:35→23:38)
[2019-06-15] MEDS: HYDROmorphONE 0.5 MG/0.5 ML SYG IV ×5 (01:49→20:35)
[2019-06-15] MEDS: METOPROLOL 25 MG TAB PO ×3 (05:32→22:00)
[2019-06-15] MEDS: PANTOPRAZOLE 40 MG INJ IV (05:32)
[2019-06-15 06:08] LABS: ADD MAN DIFF? NO
[2019-06-15 06:14] LABS: BASOPHIL # 0.1 10^3/ul (0.0-0.1); BASOPHILS % 0.6 % (0.0-2.0); EOSINOPHILS # 0.6 10^3/ul (0.0-0.5); EOSINOPHILS % 5.5 % (0.0-7.0); HEMATOCRIT 42.2 % (37.0-47.0); HEMOGLOBIN 13.1 g/dl (12.0-16.0); LYMPHOCYTES # 2.4 10^3/ul (0.8-2.9); LYMPHOCYTES % 23.8 % (15.0-51.0); MEAN CORPUSCULAR HEMOGLOBIN 28.1 pg (29.0-33.0); MEAN CORPUSCULAR VOLUME 90.4 fl (82.0-101.0); MEAN PLATELET VOLUME 10.7 fl (7.4-10.4); MONOCYTE # 0.6 10^3/ul (0.3-0.9); MONOCYTES % 5.4 % (0.0-11.0); NEUTROPHIL # 6.5 10^3/ul (1.6-7.5); NEUTROPHILS % 64.3 % (39.0-77.0); PLATELET COUNT 276 10^3/UL (140-415); RED BLOOD COUNT 4.67 10^6/ul (4.20-5.40); RED CELL DISTRIBUTION WIDTH 15.8 % (11.5-14.5)
[2019-06-15 06:14] LABS: WHITE BLOOD COUNT 10.2 10^3/ul (4.8-10.8)
[2019-06-15 06:36] LABS: ANION GAP 7 (5-13); BLOOD UREA NITROGEN 4 mg/dl (7-20); CALCIUM 8.8 mg/dl (8.4-10.2); CARBON DIOXIDE 26 mmol/L (21-31); CHLORIDE 105 mmol/L (97-110); Estimated GFR > 60 mL/min (>60); GLUCOSE 94 mg/dl (70-220); POTASSIUM 3.9 mmol/L (3.5-5.1); SODIUM 138 mmol/L (135-144)
[2019-06-15 06:38] LABS: MAGNESIUM 2.4 mg/dl (1.7-2.5)
[2019-06-15] MEDS: GABAPENTIN 300 MG CAP PO ×3 (08:52→20:38)
[2019-06-15] MEDS: FERROUS SULFATE (EC) 325 MG TAB PO (08:53)
[2019-06-15] MEDS: predniSONE 10 MG TAB PO (08:53)
[2019-06-15] MEDS: FOLIC ACID 1 MG TAB PO (08:53)
[2019-06-15] MEDS: ASPIRIN 81 MG TAB PO (08:53)
[2019-06-15] MEDS: APIXABAN 5 MG TABLET PO ×2 (08:53→20:38)
[2019-06-15] MEDS: ACETAMINOPHEN 500 MG TAB PO ×2 (10:12→23:32)
[2019-06-15] MEDS: ONDANSETRON 4 MG INJ IV ×2 (10:12→18:08)
[2019-06-15] MEDS: CEFTRIAXONE 1 GM/50 ML (PMX) 50 ML IVPB (14:16)
[2019-06-15] MEDS: POTASSIUM CHLORIDE (SR) 10 MEQ TAB PO (14:17)
[2019-06-15] MEDS: D5W-0.45 NACL + KCL 20 MEQ 1,000 ML IV (18:04)
[2019-06-15] MEDS: ATORVASTATIN 80 MG TAB PO (20:38)
[2019-06-16] MEDS: HYDROmorphONE 0.5 MG/0.5 ML SYG IV ×5 (00:35→23:39)
[2019-06-16] MEDS: PANTOPRAZOLE 40 MG INJ IV (05:53)
[2019-06-16] MEDS: METOPROLOL 25 MG TAB PO ×3 (05:54→20:37)
[2019-06-16 06:41] LABS: ADD MAN DIFF? NO
[2019-06-16 06:49] LABS: WHITE BLOOD COUNT 8.5 10^3/ul (4.8-10.8)
[2019-06-16 06:49] LABS: BASOPHILS % 0.5 % (0.0-2.0); EOSINOPHILS # 0.6 10^3/ul (0.0-0.5); EOSINOPHILS % 6.4 % (0.0-7.0); HEMATOCRIT 42.5 % (37.0-47.0); HEMOGLOBIN 13.5 g/dl (12.0-16.0); LYMPHOCYTES # 2.3 10^3/ul (0.8-2.9); LYMPHOCYTES % 26.4 % (15.0-51.0); MEAN CORPUSCULAR HEMOGLOBIN 28.3 pg (29.0-33.0); MEAN CORPUSCULAR HGB CONC 31.8 g/dl (32.0-37.0); MEAN CORPUSCULAR VOLUME 89.1 fl (82.0-101.0); MEAN PLATELET VOLUME 10.6 fl (7.4-10.4); MONOCYTE # 0.5 10^3/ul (0.3-0.9); MONOCYTES % 5.6 % (0.0-11.0); NEUTROPHIL # 5.2 10^3/ul (1.6-7.5); NEUTROPHILS % 60.6 % (39.0-77.0); PLATELET COUNT 257 10^3/UL (140-415); RED BLOOD COUNT 4.77 10^6/ul (4.20-5.40); RED CELL DISTRIBUTION WIDTH 15.7 % (11.5-14.5)
[2019-06-16] MEDS: ACETAMINOPHEN 500 MG TAB PO (06:56)
[2019-06-16 07:22] LABS: ANION GAP 8 (5-13); BLOOD UREA NITROGEN 4 mg/dl (7-20); CARBON DIOXIDE 26 mmol/L (21-31); CHLORIDE 104 mmol/L (97-110); CREATININE 0.53 mg/dl (0.44-1.00); Estimated GFR > 60 mL/min (>60); GLUCOSE 92 mg/dl (70-220); POTASSIUM 3.9 mmol/L (3.5-5.1); SODIUM 138 mmol/L (135-144)
[2019-06-16] MEDS: APIXABAN 5 MG TABLET PO ×2 (08:34→20:33)
[2019-06-16] MEDS: ASPIRIN 81 MG TAB PO (08:34)
[2019-06-16] MEDS: FOLIC ACID 1 MG TAB PO (08:34)
[2019-06-16] MEDS: predniSONE 10 MG TAB PO (08:34)
[2019-06-16] MEDS: GABAPENTIN 300 MG CAP PO ×3 (08:34→20:33)
[2019-06-16] MEDS: FERROUS SULFATE (EC) 325 MG TAB PO (08:34)
[2019-06-16] MEDS: ONDANSETRON 4 MG INJ IV (08:35)
[2019-06-16] MEDS ORDERED: HYDROCODONE/APAP (5/325) TAB PO (14:00)
[2019-06-16] MEDS: CEFTRIAXONE 1 GM/50 ML (PMX) 50 ML IVPB (14:29)
[2019-06-16] MEDS: HYDROCODONE/APAP (5/325) TAB PO ×2 (16:54→21:17)
[2019-06-16] MEDS: ATORVASTATIN 40 MG TAB PO (20:33)
[2019-06-17] MEDS: HYDROCODONE/APAP (5/325) TAB PO ×5 (02:44→23:02)
[2019-06-17] MEDS: PANTOPRAZOLE (EC) 40 MG TAB PO (05:43)
[2019-06-17] MEDS: HYDROmorphONE 0.5 MG/0.5 ML SYG IV ×2 (05:44→20:36)
[2019-06-17] MEDS: GABAPENTIN 300 MG CAP PO ×3 (08:47→20:38)
[2019-06-17] MEDS: APIXABAN 5 MG TABLET PO ×2 (08:47→20:38)
[2019-06-17] MEDS: METOPROLOL 25 MG TAB PO ×2 (08:47→20:40)
[2019-06-17] MEDS: FERROUS SULFATE (EC) 325 MG TAB PO (08:47)
[2019-06-17] MEDS: FOLIC ACID 1 MG TAB PO (08:47)
[2019-06-17] MEDS: ASPIRIN 81 MG TAB PO (08:48)
[2019-06-17] MEDS: ONDANSETRON 4 MG INJ IV ×2 (08:48→20:46)
[2019-06-17] MEDS: predniSONE 10 MG TAB PO (08:48)
[2019-06-17] MEDS: ATORVASTATIN 40 MG TAB PO (20:38)
[2019-06-18] MEDS: HYDROCODONE/APAP (5/325) TAB PO ×3 (03:15→20:47)
[2019-06-18] MEDS: PANTOPRAZOLE (EC) 40 MG TAB PO (05:24)
[2019-06-18] MEDS: HYDROmorphONE 0.5 MG/0.5 ML SYG IV ×3 (05:25→17:35)
[2019-06-18] MEDS: GABAPENTIN 300 MG CAP PO ×3 (09:19→20:47)
[2019-06-18] MEDS: predniSONE 10 MG TAB PO (09:21)
[2019-06-18] MEDS: FERROUS SULFATE (EC) 325 MG TAB PO (09:21)
[2019-06-18] MEDS: DULOXETINE 20 MG CAP DR PO (09:21)
[2019-06-18] MEDS: FOLIC ACID 1 MG TAB PO (09:21)
[2019-06-18] MEDS: APIXABAN 5 MG TABLET PO ×2 (09:21→20:47)
[2019-06-18] MEDS: ASPIRIN 81 MG TAB PO (09:21)
[2019-06-18] MEDS: METOPROLOL 25 MG TAB PO ×2 (09:21→20:47)
[2019-06-18] MEDS: ONDANSETRON 4 MG INJ IV (11:40)
[2019-06-18] MEDS: LORAZEPAM 0.5 MG TAB PO (13:12)
[2019-06-18] MEDS: ATORVASTATIN 40 MG TAB PO (20:47)
[2019-06-19] MEDS: HYDROCODONE/APAP (5/325) TAB PO ×5 (01:10→21:58)
[2019-06-19] MEDS: HYDROmorphONE 0.5 MG/0.5 ML SYG IV (04:00)
[2019-06-19] MEDS: PANTOPRAZOLE (EC) 40 MG TAB PO (05:58)
[2019-06-19] MEDS: FOLIC ACID 1 MG TAB PO (08:13)
[2019-06-19] MEDS: APIXABAN 5 MG TABLET PO ×2 (08:13→20:38)
[2019-06-19] MEDS: predniSONE 10 MG TAB PO (08:13)
[2019-06-19] MEDS: GABAPENTIN 300 MG CAP PO ×3 (08:15→20:38)
[2019-06-19] MEDS: FERROUS SULFATE (EC) 325 MG TAB PO (08:15)
[2019-06-19] MEDS: ASPIRIN 81 MG TAB PO (08:15)
[2019-06-19] MEDS: DULOXETINE 20 MG CAP DR PO (08:15)
[2019-06-19] MEDS: METOPROLOL 25 MG TAB PO ×2 (08:15→20:39)
[2019-06-19] MEDS: ONDANSETRON 4 MG INJ IV (10:23)
[2019-06-19] MEDS: ATORVASTATIN 40 MG TAB PO (20:39)
[2019-06-20] MEDS: HYDROmorphONE 0.5 MG/0.5 ML SYG IV (02:20)
[2019-06-20] MEDS: PANTOPRAZOLE (EC) 40 MG TAB PO (05:49)
[2019-06-20] MEDS: HYDROCODONE/APAP (5/325) TAB PO ×4 (05:49→19:56)
[2019-06-20] MEDS: ONDANSETRON 4 MG INJ IV (05:53)
[2019-06-20] MEDS: ASPIRIN 81 MG TAB PO (08:49)
[2019-06-20] MEDS: GABAPENTIN 300 MG CAP PO ×3 (08:50→20:56)
[2019-06-20] MEDS: FERROUS SULFATE (EC) 325 MG TAB PO (08:50)
[2019-06-20] MEDS: predniSONE 10 MG TAB PO (08:51)
[2019-06-20] MEDS: APIXABAN 5 MG TABLET PO ×2 (08:51→20:56)
[2019-06-20] MEDS: FOLIC ACID 1 MG TAB PO (08:51)
[2019-06-20] MEDS: METOPROLOL 25 MG TAB PO ×3 (08:54→20:57)
[2019-06-20] MEDS: DULOXETINE 20 MG CAP DR PO (08:54)
[2019-06-20] MEDS: ATORVASTATIN 40 MG TAB PO (20:56)
[2019-06-21] MEDS: HYDROCODONE/APAP (5/325) TAB PO ×4 (00:36→12:44)
[2019-06-21] MEDS: LORAZEPAM 0.5 MG TAB PO (02:01)
[2019-06-21] MEDS: PANTOPRAZOLE (EC) 40 MG TAB PO (06:42)
[2019-06-21] MEDS: ONDANSETRON 4 MG INJ IV (08:28)
[2019-06-21] MEDS: ASPIRIN 81 MG TAB PO (08:32)
[2019-06-21] MEDS: APIXABAN 5 MG TABLET PO (08:32)
[2019-06-21] MEDS: GABAPENTIN 300 MG CAP PO ×2 (08:32→12:44)
[2019-06-21] MEDS: DULOXETINE 20 MG CAP DR PO (08:33)
[2019-06-21] MEDS: FERROUS SULFATE (EC) 325 MG TAB PO (08:33)
[2019-06-21] MEDS: predniSONE 10 MG TAB PO (08:33)
[2019-06-21] MEDS: METOPROLOL 25 MG TAB PO (08:34)
[2019-06-21] MEDS: FOLIC ACID 1 MG TAB PO (08:34)
[2019-06-21] MEDS: METHOTREXATE 2.5 MG TAB PO (15:59)
[2019-06-21] MEDS: HYDROmorphONE 0.5 MG/0.5 ML SYG IV (16:54)
== END 2019-06-21 17:24 | disposition home health service (06) | DRG 689 ==
LOC: E/R 19:53 → TEL 21:33
DX: N39.0 Urinary tract infection, site not specified (principal); I21.4 Non-ST elevation (NSTEMI) myocardial infarction; F41.9 Anxiety disorder, unspecified; E86.0 Dehydration; I48.0 Paroxysmal atrial fibrillation; M06.9 Rheumatoid arthritis, unspecified; J44.9 Chronic obstructive pulmonary disease, unspecified; Z87.891 Personal history of nicotine dependence; Z99.3 Dependence on wheelchair; B96.20 Unspecified Escherichia coli [E. coli] as the cause of diseases classified elsewhere; B96.89 Other specified bacterial agents as the cause of diseases classified elsewhere; F32.9 Major depressive disorder, single episode, unspecified; K52.9 Noninfective gastroenteritis and colitis, unspecified; I25.119 Atherosclerotic heart disease of native coronary artery with unspecified angina pectoris
CPT/HCPCS: 36415; 71045; 74176; 75574; 76705; 80048; 80053; 80061; 81001; 82962; 83690; 83735; 84484; 85025; 87075; 87086; 87177; 93005; 93306; 96374; 96375; 97110; 97162; 97530; 99285-25